=== PATIENT | female | born 1975 | race Caucasian/White ===

== ENCOUNTER 2018-07-30 11:55 | Outpatient (CLI) | payer MEDICARE, MEDICAID, SELFPAY ==
[2018-07-30 13:12] LABS: HCT 40.7 % (36.0-46.0); Mean Corp. HGB Concentration 34.4 g/dL (32.0-36.0); Mean Corpuscular Hemoglobin 33.7 pg (27.0-33.0); Mean Corpuscular Volume 98.1 fL (80-95); Mean Platelet Volume 10.8 fL (8.0-11.0); Platelet Count 184 x1000/uL (130-400); RBC 4.15 m/cumm (4.00-5.20); RBC Distribution Width 12.3 % (11.7-14.6); White Blood Cell Count 7.66 k/cumm (4.4-10.8)
[2018-07-30 13:35] LABS: VALPROIC ACID 88.5 ug/mL (50-100)
[2018-07-30 13:36] LABS: BUN 13 mg/dL (7-18); Calcium 8.4 mg/dL (8.5-10.1); Glucose 88 mg/dL (70-100)
[2018-07-30 13:37] LABS: ALT 11 U/L (12-78); AST 15 U/L (15-37); Albumin 2.9 g/dL (3.4-5.0); Alkaline Phosphatase 83 U/L (46-116); Anion Gap 9.7 mmol/L (3-11); Bilirubin, Total 0.2 mg/dL (0.2-1.0); CO2 25.3 mmol/L (21.0-32.0); CREATININE 0.49 mg/dL (0.55-1.02); Chloride 104 mmol/L (98-107); Sodium 139 mmol/L (136-145); TROPONIN-I 12.2 ug/mL (4.0-12.0); Total Protein 6.6 g/dL (6.4-8.2)
[2018-07-30 14:01] LABS: Vitamin D 25 Total 44.9 ng/ml (30-100)
== END 2018-07-30 12:15 ==
PROVIDERS: PCP Family Medicine; Visit Provider Family Medicine
DX: G40.309 Generalized idiopathic epilepsy and epileptic syndromes, not intractable, without status epilepticus (principal); G80.9 Cerebral palsy, unspecified; E55.9 Vitamin D deficiency, unspecified; Z51.81 Encounter for therapeutic drug level monitoring; Z79.899 Other long term (current) drug therapy
CPT/HCPCS: 36415; 80053; 82306; 85027; 80156; 80164

== ENCOUNTER 2019-04-01 10:35 | Outpatient (CLI) | payer MEDICARE, MEDICAID, SELFPAY ==
[2019-04-01 12:34] LABS: Abs Immature Grans 0.01 k/cumm (0.0-0.09); Absolute Basophil Count 0.04 k/cumm (0.0-0.2); Absolute Eosinophil Count 0.06 k/cumm (0.0-0.7); Absolute Lymphocyte Count 2.16 k/cumm (1.2-3.4); Absolute Monocyte Count 0.52 k/cumm (0.11-0.7); Absolute Neutrophil Count 3.27 k/cumm (1.2-6.7); Basophils % 0.7; HCT 37.9 % (36.0-46.0); HGB 12.5 g/dL (12.0-15.5); Immature Grans % 0.2 %; Lymphocytes % 35.6; Mean Corpuscular Hemoglobin 33.2 pg (27.0-33.0); Mean Corpuscular Volume 100.5 fL (80-95); Mean Platelet Volume 11.1 fL (8.0-11.0); Monocytes % 8.6; Neutrophils % 53.9; Platelet Count 150 x1000/uL (130-400); RBC 3.77 m/cumm (4.00-5.20); White Blood Cell Count 6.06 k/cumm (4.4-10.8)
[2019-04-01 12:48] LABS: VALPROIC ACID 97.5 ug/mL (50-100)
[2019-04-01 12:51] LABS: TROPONIN-I 11.6 ug/mL (4.0-12.0)
[2019-04-01 13:38] LABS: ALT 10 U/L (14-59); AST 17 U/L (15-37); Albumin 2.6 g/dL (3.4-5.0); Alkaline Phosphatase 82 U/L (46-116); BUN 20 mg/dL (7-18); Bilirubin, Total 0.1 mg/dL (0.2-1.0); CREATININE 0.58 mg/dL (0.55-1.02); Glucose 110 mg/dL (74-106); Potassium 4.2 mmol/L (3.5-5.1); Sodium 142 mmol/L (136-145); Total Protein 6.1 g/dL (6.4-8.2)
[2019-04-01 13:42] LABS: CO2 QNS mmol/L (21.0-32.0); Chloride QNS mmol/L (98-107)
[2019-04-01 13:44] LABS: Calcium 7.9 mg/dL (8.5-10.1)
== END 2019-04-01 10:55 ==
PROVIDERS: PCP Family Medicine; Visit Provider Family Medicine
DX: G40.909 Epilepsy, unspecified, not intractable, without status epilepticus (principal); Z51.81 Encounter for therapeutic drug level monitoring; Z79.899 Other long term (current) drug therapy
CPT/HCPCS: 36415; 80053; 80156; 80164; 85025

== ENCOUNTER 2020-08-08 03:04 | Outpatient (CLI) | payer MEDICARE, MEDICAID, SELFPAY ==
[2020-08-08 13:01] LABS: HCT 42.1 % (36.0-46.0); HGB 14.2 g/dL (11.2-15.7); MCH 33.3 pg (27.0-33.0); MCHC 33.7 % (32.0-36.0); MCV 98.8 fL (80-95); MPV 10.9 fL (8.0-11.0); Platelet Count 142 10^3/uL (130-400); RBC 4.26 10^6/uL (3.93-5.22); RDW 11.9 % (11.7-14.6); RDW-SD 43.3 fL
[2020-08-08 13:52] LABS: VALPROIC ACID 112.2 ug/mL (50-100)
[2020-08-08 13:54] LABS: ALT 12 U/L (14-59); AST 14 U/L (15-37); Alkaline Phosphatase 85 U/L (46-116); Anion Gap 10.1 mmol/L (3-11); BUN 13 mg/dL (7-18); Bilirubin, Total 0.2 mg/dL (0.2-1.0); CO2 25.9 mmol/L (21.0-32.0); CREATININE 0.5 mg/dL (0.55-1.02); Calcium 8.8 mg/dL (8.5-10.1); Chloride 107 mmol/L (98-107); Glucose 109 mg/dL (74-106); Potassium 4.2 mmol/L (3.5-5.1); Sodium 143 mmol/L (136-145); Total Protein 7.2 g/dL (6.4-8.2)
[2020-08-08 13:56] LABS: Folate > 20.0 ng/mL (8.6-20.0)
[2020-08-10 05:02] LABS: Vitamin D 25 Total 38.6 ng/mL (30-100)
== END 2020-08-08 03:05 | disposition home or self-care (01) ==
LOC: LBO 03:04
PROVIDERS: PCP Family Medicine; Visit Provider Family Medicine
DX: R56.9 Unspecified convulsions (principal); E55.9 Vitamin D deficiency, unspecified; G80.9 Cerebral palsy, unspecified; Z51.81 Encounter for therapeutic drug level monitoring; Z79.899 Other long term (current) drug therapy; D53.9 Nutritional anemia, unspecified
CPT/HCPCS: 36415; 80053; 82306; 85027; 80156; 80164; 82746

== ENCOUNTER 2022-02-11 19:08 | Inpatient (IN) | payer MEDICARE, MEDICAID, SELFPAY ==
[2022-02-11 19:14] VITALS: BP 119/68; PULSE 80; RESP 18; O2SAT 98
--- NOTE | 2022-02-11 19:15 | RT.EKG_ITS ---
APPROVED REPORT Exam: Resting ECG Reason for Exam: ams Patient Location: E HR:79 bpm ECG Measurements Heart Rate 79 AXIS WV 140 P 60 QRSd 74 QRS -57 QT 344 T 47 QTc 396 Conclusion Sinus rhythm...normal P axis, V-rate 60- 99 Ventricular premature complex...V complex w/ short R-R interval Left anterior fascicular block...axis(240,-40), init forces inf sinus rhythm, left axis, normal intevals, non ischemic
--- NOTE | 2022-02-11 19:55 | ED.GENADUL_ITS ---
Discharge Plan Disposition Patient Disposition: Admit to [facility] Condition: Stable Discharge Details Chief Complaint: AMS/LOC Clinical Impression: Altered mental status Primary Care Provider: Paula Lorenzo ED Provider: Ze Castro Home Meds and New Rx's Prescriptions: No Action carbamazepine 100 mg tablet,chewable See Rx Instructions PO TID Qty: 180 12RF Rx Instructions: 2 tabs in AM; 1 tab noon; 3 tabs in PM bisacodyl [Dulcolax (bisacodyl)] 10 mg suppository 10 mg MO DAILY Qty: 90 5RF divalproex 125 mg tablet,delayed release (DR/EC) See Rx Instructions PO BID Qty: 330 8RF Rx Instructions: 5tab in AM; 6 tab in PM PO twice a day; Medical Decision Making This is a 46-year-old female who is nonverbal, past medical history that includes cerebral palsy, seizure disorder, presenting for decreased responsiveness. HPI is quite difficult given her nonverbal status. Her typical entry level assistant manager was called away on a family emergency and her respite entry level assistant manager who knows her well states that she was far from her typical baseline. Would not take any p.o. intake including food or medications and was far less responsive than usual. She states this is very atypical. Patient presents with her mother, mother reports that she seems to be off from her baseline mental status as well. Given the difficult HPI, limited information, plan is to obtain routine screening laboratory values including a CT of her brain and a chest x- ray. We will provide IV fluids as well Laboratory values reveal mild nonspecific leukocytosis 11.17, platelet count of 105, electrolytes unremarkable creatinine 0.6 with a GFR of 110.65 calcium 7.3 magnesium 1.9 troponin less than the 50, urine was a cath specimen, large blood. Flu, RSV, COVID-negative. CT imaging of brain and chest x-ray unremarkable. I had a very candid conversation both with the mother and then subsequently with the current respite home care worker. They both feel as though she is very far from her baseline. Here in the ER she would not eat any applesauce and would not take her oral nighttime medications that she would typically take without any difficulty. Her home health cooler worker feels as though there is something wrong and is quite concerned about excepting care. Given the overall atypical presentation, difficult HPI, and concern of the staff, I will discussed the case with our hospitalist to try for potential observation admission Case discussed with Dr. Shane who came to personally evaluate the patient and is agreeable to admission. He plans to treat the hematuria and mild leukocytosis as potential UTI until cultures have been resulted. This documentation was generated using [employer] dictation system, please disregard any oddities of phrase or misspellings. Medical Records Medical records reviewed: Yes I reviewed the patient's medical records. Imaging Data Radiologic Study: Attestation: I personally reviewed and interpreted this imaging study as follows: Imaging: X-Ray Radiologist's impression: PROCEDURE INFORMATION: Exam: XR Chest Exam date and time: 02/11/2022 8:32 PM Age: 46 years old Clinical indication: Other: AMS TECHNIQUE: Imaging protocol: Radiologic exam of the chest. Views: 1 view. COMPARISON: CR CHEST 2 VIEWS PA,LAT 04/22/2017 4:16 PM FINDINGS: Lungs: Unremarkable. No consolidation. Pleural spaces: Unremarkable. No pleural effusion. No pneumothorax. Heart/Mediastinum: Unremarkable. No cardiomegaly. Bones/joints: Unremarkable. Moderate gastric distension IMPRESSION: No acute findings. Moderate gastric distention . Consider nasogastric intubation as indicated Radiologic Study #2: Attestation: I personally reviewed and interpreted this imaging study as follows: Imaging: CT Scan Radiologist's impression: PROCEDURE INFORMATION: Exam: CT Head Without Contrast Exam date and time: 02/11/2022 8:37 PM Age: 46 years old Clinical indication: Altered mental status/memory loss TECHNIQUE: Imaging protocol: Computed tomography of the head without contrast. COMPARISON: No relevant prior studies available. FINDINGS: Brain: Mild volume loss No hemorrhage. Unremarkable white matter. No mass effect. Cerebral ventricles: No ventriculomegaly. Paranasal sinuses: Minimal mucosal thickening. No fluid levels. Mastoid air cells: Visualized mastoid air cells are well aerated. Bones/joints: Unremarkable. No acute fracture. Soft tissues: Unremarkable. IMPRESSION: No acute intracranial abnormality. Lab Data Lab results reviewed: Yes I reviewed the patient's lab results. Labs: 02/11/22 20:22 Urine - Reflex from Ua Urine Culture - Pending Laboratory Tests Range/Units 02/11/22 02/11/22 02/11/22 20:05 20:05 20:05 WBC (4.4-10.8) 10^3/uL 11.17 H RBC (3.93-5.22) 10^6/uL 3.78 L Hgb (11.2-15.7) g/dL 12.8 Hct (36.0-46.0) % 37.7 MCV (80-95) fL 100 H MCH (27.0-33.0) pg 33.9 H MCHC (32.0-36.0) % 34.0 RDW (11.7-14.6) % 11.9 Plt Count (130-400) 10^3/uL 105 L MPV (8.0-11.0) fL 11.4 H Immature Gran % 0.5 Neutrophils % 67.4 Lymphocytes % 14.5 Monocytes % 17.4 Eosinophils % 0.0 Basophils % 0.2 Nucleated RBC % (0.0-0.3) % 0.0 Absolute Neutrophils (1.2-6.7) 10^3/uL 7.53 H Absolute Lymphocytes (1.2-3.4) 10^3/uL 1.62 Absolute Monocytes (0.1-0.8) 10^3/uL 1.94 H Absolute Eosinophils (0.0-0.7) 10^3/uL 0.00 Absolute Basophils (0.0-0.2) 10^3/uL 0.02 RBC Morphology Normal Sodium (136-145) mmol/L 140 Potassium (3.5-5.1) mmol/L 3.9 Chloride (98-107) mmol/L 107 Carbon Dioxide (21.0-32.0) mmol/L 23.9 Anion Gap (3-11) mmol/L 9.1 BUN (7-18) mg/dL 19 H Creatinine (0.55-1.02) mg/dL 0.6 Est GFR (CKD-EPI 2020) (mL/min/1.73m2) 110.65 Glucose (74-106) mg/dL 105 Calcium (8.5-10.1) mg/dL 7.3 L Magnesium (1.8-2.4) mg/dL 1.9 Total Bilirubin (0.2-1.0) mg/dL 0.1 L AST (15-37) U/L 19 ALT (14-59) U/L 6 L Alkaline Phosphatase (46-116) U/L 70 Troponin I (<or=60) ng/L < 50 Total Protein (6.4-8.2) g/dL 5.9 L Albumin (3.4-5.0) g/dL 2.4 L TSH (0.36-3.74) uIU/mL 1.06 Urine Color (Yellow) Urine Clarity (Clear) Urine pH (5-8) Ur Specific [place] (1.005-1.025) Urine Protein (Negative) mg/dL Urine Ketones (Negative) mg/dL Urine Blood (Negative) Urine Nitrite (Negative) Urine Bilirubin (Negative) Urine Urobilinogen (Up TO 0.2) EU/dL Ur Leukocyte Esterase (Negative) Urine RBC (0-2) HPF Urine WBC Ur Epithelial Cells Urine Crystals Urine Bacteria Urine Mucus Ur Culture Indicated? Urine Glucose (Negative) mg/dL COVID-19 Source SARS-CoV-2 (PCR) (Negative) Influenza Type A (PCR) (Negative) Influenza Type B (PCR) (Negative) RSV (PCR) (Negative) Range/Units 02/11/22 02/11/22 20:22 20:25 WBC (4.4-10.8) 10^3/uL RBC (3.93-5.22) 10^6/uL Hgb (11.2-15.7) g/dL Hct (36.0-46.0) % MCV (80-95) fL MCH (27.0-33.0) pg MCHC (32.0-36.0) % RDW (11.7-14.6) % Plt Count (130-400) 10^3/uL MPV (8.0-11.0) fL Immature Gran % Neutrophils % Lymphocytes % Monocytes % Eosinophils % Basophils % Nucleated RBC % (0.0-0.3) % Absolute Neutrophils (1.2-6.7) 10^3/uL Absolute Lymphocytes (1.2-3.4) 10^3/uL Absolute Monocytes (0.1-0.8) 10^3/uL Absolute Eosinophils (0.0-0.7) 10^3/uL Absolute Basophils (0.0-0.2) 10^3/uL RBC Morphology Sodium (136-145) mmol/L Potassium (3.5-5.1) mmol/L Chloride (98-107) mmol/L Carbon Dioxide (21.0-32.0) mmol/L Anion Gap (3-11) mmol/L BUN (7-18) mg/dL Creatinine (0.55-1.02) mg/dL Est GFR (CKD-EPI 2020) (mL/min/1.73m2) Glucose (74-106) mg/dL Calcium (8.5-10.1) mg/dL Magnesium (1.8-2.4) mg/dL Total Bilirubin (0.2-1.0) mg/dL AST (15-37) U/L ALT (14-59) U/L Alkaline Phosphatase (46-116) U/L Troponin I (<or=60) ng/L Total Protein (6.4-8.2) g/dL Albumin (3.4-5.0) g/dL TSH (0.36-3.74) uIU/mL Urine Color (Yellow) Yellow Urine Clarity (Clear) Cloudy Urine pH (5-8) 6.0 Ur Specific [place] (1.005-1.025) 1.025 Urine Protein (Negative) mg/dL 30 H Urine Ketones (Negative) mg/dL Negative Urine Blood (Negative) Large H Urine Nitrite (Negative) Negative Urine Bilirubin (Negative) Negative Urine Urobilinogen (Up TO 0.2) EU/dL 0.2 Ur Leukocyte Esterase (Negative) Trace H Urine RBC (0-2) HPF >50 H Urine WBC Not Applicable Ur Epithelial Cells Not Applicable Urine Crystals Not Applicable Urine Bacteria Not Applicable Urine Mucus Not Applicable Ur Culture Indicated? Yes Urine Glucose (Negative) mg/dL Negative COVID-19 Source Nasopharynx SARS-CoV-2 (PCR) (Negative) Negative Influenza Type A (PCR) (Negative) Negative Influenza Type B (PCR) (Negative) Negative RSV (PCR) (Negative) Negative ECG Data Attestation: I personally reviewed and interpreted this ECG (s) as follows: Interpretation: Sinus rhythm, ventricular rate of 79. No STEMI Sign Out No HPI General Mode of arrival: EMS . Date/Time Provider Initiated Documentation: 02/11/22 19:18 . Limitations to Documentation: other (Pt non verbal) . Information obtained by: family (mother) and EMS . HPI Narrative: This is a 46-year-old female with a past medical history of cerebral palsy, seizure disorder, who is nonverbal at baseline presenting via EMS for decreased mental status. Patient typically resides in a home health home however that worker had a family emergency and had to leave. Subsequently she received a new cooler worker today who has dealt with the patient in the past who felt that the patient had a decreased mental status. She typically is awake and alert and tolerates p.o. intake without difficulty. Today she was withdrawn, not interacting, and not taking any p.o. intake. No known recent illness or trauma. Patient is nonverbal, limited HPI Related Data Home Medications Medication Instructions Recorded Confirmed carbamazepine 100 mg chewable See Rx Instructions PO TID #180 03/27/21 02/11/22 tablet tabs bisacodyl 10 mg rectal suppository 10 mg MO DAILY #90 supp 08/01/21 02/11/22 (Dulcolax (bisacodyl)) divalproex 125 mg tablet,delayed See Rx Instructions PO BID #330 01/01/22 02/11/22 release tab-caps Previous Rx's Medication Instructions Recorded carbamazepine 100 mg chewable See Rx Instructions PO TID #180 03/27/21 tablet tabs bisacodyl 10 mg rectal suppository 10 mg MO DAILY #90 supp 08/01/21 (Dulcolax (bisacodyl)) divalproex 125 mg tablet,delayed See Rx Instructions PO BID #330 01/01/22 release tab-caps Allergies Allergy/AdvReac Type Severity Reaction Status Date / Time sulfamethoxazole AdvReac Intermediate NAUSEA, Verified 02/11/22 20:31 [From Bactrim] VOMITING trimethoprim [From Bactrim] AdvReac Intermediate NAUSEA, Verified 02/11/22 20:31 VOMITING General Stated Complaint: AMS/LOC TYE: 3 Review of Systems Unobtainable due to mental condition (non verbal) PFSH All Active Problems (Updated 02/11/22 @ 23:51 by EMILY Mckeon) Altered mental status (Acute) Chalazion of right eyelid (Acute) Eyelid abnormality (Acute) Seizure (Acute) 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 [place] [facility] [place] Onychomycosis (Chronic) Hearing loss (Chronic) Generalized convulsive epilepsy (Chronic) Cerebral palsy (Chronic) Acne (Chronic) Macrocytic anemia (Chronic) Family History Mother No problems noted. Father No problems noted. Grandfather No problems noted. Grandmother No problems noted. Social History Smoking/Tobacco Use Status: Never Smoking risk assessment performed?: Yes Alcohol Intake: never Drug use: Never Substance use type: does not use Do you feel safe in your relationship?: Yes Exam Const General: no acute distress and ill appearing chronically Orientation: alert and awake [facility] Head: normal to inspection, normocephalic and atraumatic Face and sinus: normal facial exam Mouth: moist mucous membranes abnormal (Slightly dry) Throat: posterior oropharynx normal Eyes General: appearance normal, both eyes and all related structures Conjunctivae: conjunctivae normal Neck Neck: normal visual inspection, full ROM, no meningeal signs, trachea midline and supple Resp Effort & Inspection: normal respiratory effort and able to speak in complete sentences Auscultation: clear to auscultation bilaterally Cardio Rate: regular rate Rhythm: regular rhythm GI Palpation: soft and nontender Skin General skin exam: no rashes or lesions noted Neuro General: patient alert, patient awake and moves all extremities Extrem Other: Baseline contractures. Otherwise unremarkable Psych Appearance: grossly normal Mental Status: mental status grossly normal Course Vital Signs Vital signs: Vital Signs Pulse 80 02/11/22 19:14 Respiratory Rate 18 02/11/22 19:14 Blood Pressure 119/68 02/11/22 19:14 Pulse Oximetry 98 02/11/22 19:14 Pulse 80 02/11/22 19:14 Respiratory Rate 18 02/11/22 19:14 Blood Pressure 119/68 02/11/22 19:14 Blood Pressure Position Supine 02/11/22 19:14 Pulse Oximetry 98 02/11/22 19:14 Oxygen Delivery Method Room Air 02/11/22 19:14 Oxygen Flow Rate 0 02/11/22 19:14
[2022-02-11 20:14] LABS: Abs Immature Grans 0.06 10^3/uL (0.0-0.06); Absolute Basophil Count 0.02 10^3/uL (0.0-0.2); Absolute Lymphocyte Count 1.62 10^3/uL (1.2-3.4); Absolute Monocyte Count 1.94 10^3/uL (0.1-0.8); Absolute Neutrophil Count 7.53 10^3/uL (1.2-6.7); Basophils % 0.2; HCT 37.7 % (36.0-46.0); HGB 12.8 g/dL (11.2-15.7); Immature Grans % 0.5; Lymphocytes % 14.5; MCH 33.9 pg (27.0-33.0); MCV 100 fL (80-95); MPV 11.4 fL (8.0-11.0); Monocytes % 17.4; Neutrophils % 67.4; Platelet Count 105 10^3/uL (130-400); RBC 3.78 10^6/uL (3.93-5.22); RDW 11.9 % (11.7-14.6); RDW-SD 43.9 fL; WBC 11.17 10^3/uL (4.4-10.8)
[2022-02-11 20:23] LABS: Diff Comment Agrees w/ Instrument; RBC Morphology Normal
[2022-02-11 20:28] LABS: ALT 6 U/L (14-59); AST 19 U/L (15-37); Albumin 2.4 g/dL (3.4-5.0); Alkaline Phosphatase 70 U/L (46-116); Anion Gap 9.1 mmol/L (3-11); BUN 19 mg/dL (7-18); Bilirubin, Total 0.1 mg/dL (0.2-1.0); CO2 23.9 mmol/L (21.0-32.0); CREATININE 0.6 mg/dL (0.55-1.02); Calcium 7.3 mg/dL (8.5-10.1); Chloride 107 mmol/L (98-107); Estimated GFR 110.65 (mL/min/1.73m2); Glucose 105 mg/dL (74-106); Potassium 3.9 mmol/L (3.5-5.1); Sodium 140 mmol/L (136-145); Total Protein 5.9 g/dL (6.4-8.2)
[2022-02-11] MEDS: Normal Saline 1,000 ML 1000 ML IV (20:31)
[2022-02-11 20:34] LABS: Bilirubin Negative (Negative); Blood Large (Negative); Glucose Negative (Negative); Ketones Negative (Negative); Leukocyte Esterase Trace (Negative); Nitrite Negative (Negative); Specific Gravity 1.025 (1.005-1.025); Urobilinogen 0.2 EU/dL (Up TO 0.2)
--- NOTE | 2022-02-11 20:37 | DI.CT_ITS ---
Exam(s) CT HEAD WO EXAM: CT HEAD WO CLINICAL HISTORY: ams. TECHNIQUE: Imaging Protocol: Axial computed tomography images with coronal and sagittal reformatted images were created and reviewed COMPARISON: No exams were available for comparison FINDINGS: Ventricles and Extra axial spaces: Normal in size and morphology for the patient's age. Hemorrhage: None. Cerebral parenchyma: No acute territorial infarct. Midline shift: None. Brainstem/Cerebellum: Normal. Calvarium: Normal. Visualized Paranasal sinuses/Mastoids: Mild mucosal thickening in the ethmoid air cells. The remaini ng visualized paranasal sinuses are clear as are the mastoid air cells. Soft Tissues: Unremarkable. IMPRESSION: No acute intracranial process. RADIATION DOSE DELIVERED: 726.79mGy.cm Total DLP DATA REPOSITORY: All CT scans at this facility are submitted to the National Radiology Data Registry (NRDR) Dose Index Registry (DIR) with the [employer] (ACR). RADIATION OPTIMIZATION: All CT scans at this facility use at least one of these dose optimization te chniques: automated exposure control; mA and/or kV adjustment per patient size (includes targeted exa ms where dose is matched to clinical indication); or iterative reconstruction.
[2022-02-11 20:38] LABS: Magnesium 1.9 mg/dL (1.8-2.4); TSH (W/Ref FT4) 1.06 uIU/mL (0.36-3.74); Troponin I < 50 ng/L (<or=60)
--- NOTE | 2022-02-11 20:41 | DI.RAD_ITS ---
Exam(s) XR CHEST 1V IN DI DEPT EXAM: XR CHEST 1V IN DI DEPT CLINICAL HISTORY: ams TECHNIQUE: 2D digital imaging was performed of the chest. One image was obtained. An AP view was ob tained. COMPARISON: CR CHEST 2 VIEWS PA,LAT from 04/22/2017 FINDINGS: MEDIASTINUM: Normal. HEART: Normal. PULMONARY VASCULATURE: Normal. LUNGS: Clear. PLEURAL SPACE: No pleural effusion or pneumothorax. BONE:Within normal limits for the patient's age. OTHER FINDINGS:Note is made of moderate gastric distention. IMPRESSION: No acute pulmonary findings. DATA REPOSITORY: RADIATION DOSE DELIVERED:
[2022-02-11 20:44] LABS: Clarity Cloudy (Clear)
[2022-02-11 20:45] LABS: C & S Indicated? Yes; RBC >50 HPF (0-2)
--- NOTE | 2022-02-11 20:49 | DI.VRAD_ITS ---
PROCEDURE INFORMATION: Exam: CT Head Without Contrast Exam date and time: 02/11/2022 8:37 PM Age: 46 years old Clinical indication: Altered mental status/memory loss TECHNIQUE: Imaging protocol: Computed tomography of the head without contrast. COMPARISON: No relevant prior studies available. FINDINGS: Brain: Mild volume loss No hemorrhage. Unremarkable white matter. No mass effect. Cerebral ventricles: No ventriculomegaly. Paranasal sinuses: Minimal mucosal thickening. No fluid levels. Mastoid air cells: Visualized mastoid air cells are well aerated. Bones/joints: Unremarkable. No acute fracture. Soft tissues: Unremarkable. IMPRESSION: No acute intracranial abnormality. Dictated and Authenticated by: Fabian Dutta MD. Ordering:JEFF Kunz MD
--- NOTE | 2022-02-11 20:49 | DI.VRAD_ITS ---
PROCEDURE INFORMATION: Exam: XR Chest Exam date and time: 02/11/2022 8:32 PM Age: 46 years old Clinical indication: Other: AMS TECHNIQUE: Imaging protocol: Radiologic exam of the chest. Views: 1 view. COMPARISON: CR CHEST 2 VIEWS PA,LAT 04/22/2017 4:16 PM FINDINGS: Lungs: Unremarkable. No consolidation. Pleural spaces: Unremarkable. No pleural effusion. No pneumothorax. Heart/Mediastinum: Unremarkable. No cardiomegaly. Bones/joints: Unremarkable. Moderate gastric distension IMPRESSION: No acute findings. Moderate gastric distention . Consider nasogastric intubation as indicated Dictated and Authenticated by: Fabian Dutta MD. Ordering:JEFF Kunz MD
[2022-02-11 21:08] LABS: COVID-19 PCR Negative (Negative); Influenza A PCR Negative (Negative); Influenza B PCR Negative (Negative); RSV PCR Negative (Negative)
[2022-02-11 21:10] LABS: Source Nasopharynx
[2022-02-11 22:51] VITALS: RESP 18
--- NOTE | 2022-02-11 23:47 | HPE_ITS ---
Date of service: 02/11/22 Time of Service: 23:48 Assessment and Plan Assessment and plan (1) Altered mental status: Status: Acute Assessment and plan: Altered mental status. I think UTI may be the issue, manifesting with hematuria. Will continue IVF, begin empiric antibiotics pending culture results. As to seizure meds, I am not aware of any parenteral replacement for Depakote but will convert Tegretol to IV @ 70% of usual daily dose in four divided doses until taking PO. History of Present Illness History of Present Illness Chief Complaint: decreased responsiveness Narrative: 46 female with cerebral palsy, seizure disorder, baseline status non-verbal, total care at home. Here tonight with one day of being less responsive, not taking good PO. In ER w/u of note for absence of fever, white count 11 and microscopic hematuria; labs other barnett unrevealing. Given IVF w/o change in status. I was asked to evaluate for admission. Information Systems Security Developer does not feel she could manage patient in current state. Patient unable to provider any history. 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 Patient followed at [facility] [place]. Onychomycosis (Chronic) Hearing loss (Chronic) Generalized convulsive epilepsy (Chronic) Cerebral palsy (Chronic) Acne (Chronic) Macrocytic anemia (Chronic) Family History Mother No problems noted. Father No problems noted. Grandfather No problems noted. Grandmother No problems noted. Social History Smoking/Tobacco Use Status: Never Smoking risk assessment performed?: Yes Alcohol Intake: never Drug use: Never Substance use type: does not use Do you feel safe in your relationship?: Yes Meds Allergies and Home Medications Allergies Allergy/AdvReac Type Severity Reaction Status Date / Time sulfamethoxazole AdvReac Intermediate NAUSEA, Verified 02/11/22 20:31 [From Bactrim] VOMITING trimethoprim [From Bactrim] AdvReac Intermediate NAUSEA, Verified 02/11/22 20:31 VOMITING Home Medications Medication Instructions Recorded Confirmed Type carbamazepine 100 mg chewable See Rx Instructions PO TID #180 03/27/21 02/11/22 Rx tablet tabs bisacodyl 10 mg rectal suppository 10 mg ND DAILY #90 supp 08/01/21 02/11/22 Rx (Dulcolax (bisacodyl)) divalproex 125 mg tablet,delayed See Rx Instructions PO BID #330 01/01/22 02/11/22 Rx release tab-caps Exam Narrative Exam Narrative: 119/68, 80, 36.6, 18, 98% RA. HEENT atraumatic; neck supple; lungs clear; heart RRR; abdomen soft and NT; extremities w.o edema, contrasctures all 4s; neuro non-verbal, eyes open, non-specific movements observed Results Labs Result diagrams: 02/11/22 20:05 02/11/22 20:05 Labs: Laboratory Results - last 24 hr 02/11/22 02/11/22 02/11/22 20:05 20:05 20:05 WBC 11.17 H RBC 3.78 L Hgb 12.8 Hct 37.7 MCV 100 H MCH 33.9 H MCHC 34.0 RDW 11.9 Plt Count 105 L MPV 11.4 H Immature Gran % 0.5 Neutrophils % 67.4 Lymphocytes % 14.5 Monocytes % 17.4 Eosinophils % 0.0 Basophils % 0.2 Nucleated RBC % 0.0 Absolute Neutrophils 7.53 H Absolute Lymphocytes 1.62 Absolute Monocytes 1.94 H Absolute Eosinophils 0.00 Absolute Basophils 0.02 RBC Morphology Normal Sodium 140 Potassium 3.9 Chloride 107 Carbon Dioxide 23.9 Anion Gap 9.1 BUN 19 H Creatinine 0.6 Est GFR (CKD-EPI 2020) 110.65 Glucose 105 Calcium 7.3 L Magnesium 1.9 Total Bilirubin 0.1 L AST 19 ALT 6 L Alkaline Phosphatase 70 Troponin I < 50 Total Protein 5.9 L Albumin 2.4 L TSH 1.06 Urine Color Urine Clarity Urine pH Ur Specific [place] Urine Protein Urine Ketones Urine Blood Urine Nitrite Urine Bilirubin Urine Urobilinogen Ur Leukocyte Esterase Urine RBC Urine WBC Ur Epithelial Cells Urine Crystals Urine Bacteria Urine Mucus Ur Culture Indicated? Urine Glucose COVID-19 Source SARS-CoV-2 (PCR) Influenza Type A (PCR) Influenza Type B (PCR) RSV (PCR) 02/11/22 02/11/22 20:22 20:25 WBC RBC Hgb Hct MCV MCH MCHC RDW Plt Count MPV Immature Gran % Neutrophils % Lymphocytes % Monocytes % Eosinophils % Basophils % Nucleated RBC % Absolute Neutrophils Absolute Lymphocytes Absolute Monocytes Absolute Eosinophils Absolute Basophils RBC Morphology Sodium Potassium Chloride Carbon Dioxide Anion Gap BUN Creatinine Est GFR (CKD-EPI 2020) Glucose Calcium Magnesium Total Bilirubin AST ALT Alkaline Phosphatase Troponin I Total Protein Albumin TSH Urine Color Yellow Urine Clarity Cloudy Urine pH 6.0 Ur Specific [place] 1.025 Urine Protein 30 H Urine Ketones Negative Urine Blood Large H Urine Nitrite Negative Urine Bilirubin Negative Urine Urobilinogen 0.2 Ur Leukocyte Esterase Trace H Urine RBC >50 H Urine WBC Not Applicable Ur Epithelial Cells Not Applicable Urine Crystals Not Applicable Urine Bacteria Not Applicable Urine Mucus Not Applicable Ur Culture Indicated? Yes Urine Glucose Negative COVID-19 Source Nasopharynx SARS-CoV-2 (PCR) Negative Influenza Type A (PCR) Negative Influenza Type B (PCR) Negative RSV (PCR) Negative Last Vital Signs Pulse 80 02/11/22 19:14 Resp 18 02/11/22 22:51 BP 119/68 02/11/22 19:14 Pulse Ox 98 02/11/22 19:14
[2022-02-12] VITALS (8 sets, daily range): BP systolic 103–134; BP diastolic 59–79; PULSE 67–86; RESP 16–20; TEMP 36.8–38.1; O2SAT 95–100
--- NOTE | 2022-02-12 01:01 | NUR.NOTE ---
Nursing Note: Pt will be admitted for AMS r/t UTI by Dr. Shane. She normally takes both divalproex and carbamazepine orally for seizure disorder, however is currently NPO r/t mentation. At request of Dr. Shane, consulted [facility] [place] remote pharmacy for suitable IV substitution for her antiseizure medication regimen. Remote pharmacist recommends checking carbamazepine and valproic acid levels, then starting pt on either Keppra 500mg IV q12h OR Depacon 1Gm per day divided in either four or two doses. Pharmacist expressed preference toward Depacon over Keppra. Relayed all info to Dr. Shane.
[2022-02-12] MEDS: Lactated Ringers 1,000 ML 75 ML IV (01:45)
[2022-02-12] MEDS: CIPROFLOXACIN 400 MG/200 ML BAG 200 MG IVPB (02:11)
[2022-02-12] MEDS: ACETAMINOPHEN 1,000 MG/100 ML BTL 400 MG IVPB (02:32)
[2022-02-12] MEDS: Normal Saline Flush 10 ML SYR IVP (02:37)
[2022-02-12] MEDS: levETIRAcetam 500 MG in Normal Saline 100 ML 400 MG IVPB (03:40)
--- NOTE | 2022-02-12 09:47 | INITIAL_ITS ---
- If Service Date Differs Date of service: 02/12/22 Time of Service: 09:47 Care Management Initial Assess REASON FOR HOSPITALIZATION:: AMS, UTI PAST MEDICAL HISTORY/PAST SURGICAL HISTORY:: Cerebral Palsy, cortical blindness, bilateral hearing loss, seizure disorder. PREVIOUS FUNCTIONAL STATUS/SOCIAL/FAMILY SUPPORTS:: Allie resides at a longterm in [facility]. Her primary guardian/caregiver is out of town so Allie was in respite care. manager environmental health and safety number- [phone]. private DD home with 24 hour caregivers. Zofia Coulter is primary provider. Has resided there for the past 15 years. Her parents, Cassie and Gary Valles are her co-guardians. Patient also receives services (RN/AUTOMATIC SILK SCREEN PRINTER) from . CURRENT FUNCTIONAL STATUS:: Patient is unable to engage in conversation--information for initial assessment is being obtained from chart review. No caregiver or family present at the bedside at time of visit. ADVANCE DIRECTIVES:: Guardian listed as Lisette Delgado, updated paperwork needed. Has patient been provided with info about the portal/API?: No Did the patient sign up for the portal?: No CODE STATUS:: Full Code CURRENT HOME/COMMUNITY SERVICES/EQUIPMENT:: Patient is on IDDS waiver through [employer] and receives services under that program which includes RN and AUTOMATIC SILK SCREEN PRINTER hours from [facility]. Has hospital bed, motorized wheelchair and tub seat. Travels to appointments via w/c van. PRIMARY CARE PHYSICIAN:: Paula Lorenzo DO POTENTIAL DISCHARGE NEEDS:: Coordinated return to respite or home provider. PATIENT/FAMILY EDUCATION NEEDS:: Review discharge instructions, discuss Ask Me Three. ANTICIPATED BARRIERS TO DISCHARGE:: None identified at this time. TRANSPORTATION:: Via private W/C Van or EMS. PLAN:: Allie will return to her primary caregivers home or back to respite upon discharge, when medically ready. CM continues to follow.
[2022-02-12] MEDS: Bisacodyl 10 MG SUPP PR (11:37)
--- NOTE | 2022-02-12 14:52 | W.PM.PROGNOT ---
Date of Service Date of service: 02/12/22 Time of Service: 14:52 Subjective Subjective Patient reports: no new complaints, tolerating liquids well and afebrile; denies tolerating a regular diet, diarrhea, vomiting or shortness of breath Interval history since last seen: Awake and alert, looking around. Mother is here and states she looks mostly back to her baseline, but patient is not willing to take oral food. She lost her IV and nursing was unable to replace. Her mother stayed and fed her. I changed her meds to oral and Mom was able to give it to her. She has had no seizures. Tmax since ED 37.4; stable labs. Blood and urine Cx pending. Vital signs are stable, no tachycardia- HR 68; normotensive 110s/60s - RA SPO2 98%. Nursing has no concerns. Enoxaparin by weight for DVT Prof. Objective Last Vital Signs Temp 37.3 C 02/12/22 11:59 Pulse 81 02/12/22 11:59 Resp 16 02/12/22 11:59 BP 134/62 02/12/22 11:59 Pulse Ox 100 02/12/22 11:59 Laboratory Results - last 24 hr 02/11/22 02/11/22 02/11/22 20:05 20:05 20:05 WBC 11.17 H RBC 3.78 L Hgb 12.8 Hct 37.7 MCV 100 H MCH 33.9 H MCHC 34.0 RDW 11.9 Plt Count 105 L MPV 11.4 H Immature Gran % 0.5 Neutrophils % 67.4 Lymphocytes % 14.5 Monocytes % 17.4 Eosinophils % 0.0 Basophils % 0.2 Nucleated RBC % 0.0 Absolute Neutrophils 7.53 H Absolute Lymphocytes 1.62 Absolute Monocytes 1.94 H Absolute Eosinophils 0.00 Absolute Basophils 0.02 RBC Morphology Normal Sodium 140 Potassium 3.9 Chloride 107 Carbon Dioxide 23.9 Anion Gap 9.1 BUN 19 H Creatinine 0.6 Est GFR (CKD-EPI 2020) 110.65 Glucose 105 Calcium 7.3 L Magnesium 1.9 Total Bilirubin 0.1 L AST 19 ALT 6 L Alkaline Phosphatase 70 Troponin I < 50 Total Protein 5.9 L Albumin 2.4 L TSH 1.06 Urine Color Urine Clarity Urine pH Ur Specific [place] Urine Protein Urine Ketones Urine Blood Urine Nitrite Urine Bilirubin Urine Urobilinogen Ur Leukocyte Esterase Urine RBC Urine WBC Ur Epithelial Cells Urine Crystals Urine Bacteria Urine Mucus Ur Culture Indicated? Urine Glucose COVID-19 Source SARS-CoV-2 (PCR) Influenza Type A (PCR) Influenza Type B (PCR) RSV (PCR) 02/11/22 02/11/22 20:22 20:25 WBC RBC Hgb Hct MCV MCH MCHC RDW Plt Count MPV Immature Gran % Neutrophils % Lymphocytes % Monocytes % Eosinophils % Basophils % Nucleated RBC % Absolute Neutrophils Absolute Lymphocytes Absolute Monocytes Absolute Eosinophils Absolute Basophils RBC Morphology Sodium Potassium Chloride Carbon Dioxide Anion Gap BUN Creatinine Est GFR (CKD-EPI 2020) Glucose Calcium Magnesium Total Bilirubin AST ALT Alkaline Phosphatase Troponin I Total Protein Albumin TSH Urine Color Yellow Urine Clarity Cloudy Urine pH 6.0 Ur Specific [place] 1.025 Urine Protein 30 H Urine Ketones Negative Urine Blood Large H Urine Nitrite Negative Urine Bilirubin Negative Urine Urobilinogen 0.2 Ur Leukocyte Esterase Trace H Urine RBC >50 H Urine WBC Not Applicable Ur Epithelial Cells Not Applicable Urine Crystals Not Applicable Urine Bacteria Not Applicable Urine Mucus Not Applicable Ur Culture Indicated? Yes Urine Glucose Negative COVID-19 Source Nasopharynx SARS-CoV-2 (PCR) Negative Influenza Type A (PCR) Negative Influenza Type B (PCR) Negative RSV (PCR) Negative
[2022-02-12] MEDS: Divalproex 125 MG TABEC 625 MG PO (15:52)
[2022-02-12] MEDS: Enoxaparin 30 MG/0.3 ML SYR SC (15:54)
--- NOTE | 2022-02-12 16:00 | CHAPLAIN ---
Maureen was resting in bed, trying to sleep but couldn't get comfortable, according to her mom. Maureen has CP and lives [facility] a [facility] in [place], [place]. Her mom with with her today when I visited. She explained that Maureen is blind, but sometimes listens to TV. Her usual caregiver at the Retirement had to leave because of a family emergency and others were not able to get to Maureen to eat or take her medicine. Her mom was able to get her to eat a small amount this morning morning. Staff was unable to get an IV in, according to Maureen's mom, but as long as she continues to eat and drink some, it won't be needed, she said. I introduced myself and explained my role. I will continue to visit.
[2022-02-12] MEDS: carBAMazepine 100 MG CHEW 200 MG PO (16:27)
--- NOTE | 2022-02-12 16:44 | PHA.REVIEW2 ---
Pharmacy Admission Review - Admission Clinical Review (Last Reviewed 02/11/22 @ 23:51 by Rayray Shane MD) Altered mental status (Acute) sulfamethoxazole [From Bactrim] Adverse Reaction (Intermediate, Verified 02/11/22 20:31) NAUSEA, VOMITING trimethoprim [From Bactrim] Adverse Reaction (Intermediate, Verified 02/11/22 20:31) NAUSEA, VOMITING Resuscitation Status Full Code Height 5 ft Weight 32.3 kg - Renal Dosing Renal Dosing: BUN 19 mg/dL (7-18) H 02/11/22 20:05 Creatinine 0.6 mg/dL (0.55-1.02) 02/11/22 20:05 Medications needing adjustments: Reviewed (Crcl ~57.8 mL/min current meds okay) - Anticoagulation Anticoagulation: Hgb 12.8 g/dL (11.2-15.7) 02/11/22 20:05 Hct 37.7 % (36.0-46.0) 02/11/22 20:05 Plt Count 105 10^3/uL (130-400) L 02/11/22 20:05 Creatinine 0.6 mg/dL (0.55-1.02) 02/11/22 20:05 DVT Prophylaxis: Intervened (I asked the provider about VTE prophylaxis as there was nothing ordered, nor was anything mentioned in the H&P regarding this) Therapeutic Anticoagulation: N/A - Opiate Usage Evaluate Pain Scale/Pains Meds: N/A - Relevant Labs Sodium 140 mmol/L (136-145) 02/11/22 20:05 Potassium 3.9 mmol/L (3.5-5.1) 02/11/22 20:05 Chloride 107 mmol/L (98-107) 02/11/22 20:05 Magnesium 1.9 mg/dL (1.8-2.4) 02/11/22 20:05 Electrolytes, C-Reactive P, ESR: Reviewed - DM Control DM Control: Glucose 105 mg/dL (74-106) 02/11/22 20:05 DM Control: Reviewed Insulin Dosing, Diabetic Medication: n/a - Cardiac Review Cardiac Review: Troponin I < 50 ng/L (<or=60) 02/11/22 20:05 BP, HR, EF%: Reviewed - Qtc Review QTc: Reviewed (QTc 396 on admission) - IV to PO Switch IV Medications: Intervened (I asked provider about changing acetaminophen from IV to PO) - Home Meds Home Med List reviewed: Reviewed - Current meds Current Medication Order Review: Reviewed - Comments Comments/Follow Ups: Watch VS, labs and for med changes (possible renal dose adjustments).
[2022-02-12] MEDS: Ciprofloxacin 250 MG/5 ML 100ML BTL PO (19:43)
[2022-02-12] MEDS: carBAMazepine 100 MG CHEW 300 MG PO (19:43)
[2022-02-12] MEDS: Divalproex 125 MG TABEC 750 MG PO (19:43)
[2022-02-12] MEDS: Acetaminophen 650 MG SUPP 325 MG PR (23:56)
[2022-02-13 07:09] LABS: Abs Immature Grans 0.04 10^3/uL (0.0-0.06); Absolute Basophil Count 0.06 10^3/uL (0.0-0.2); Absolute Eosinophil Count 0.07 10^3/uL (0.0-0.7); Absolute Lymphocyte Count 3.41 10^3/uL (1.2-3.4); Absolute Monocyte Count 1.35 10^3/uL (0.1-0.8); Absolute Neutrophil Count 3.37 10^3/uL (1.2-6.7); Basophils % 0.7; Eosinophils % 0.8; Immature Grans % 0.5; Lymphocytes % 41.1; MCH 34.5 pg (27.0-33.0); MCHC 34.3 % (32.0-36.0); MCV 101 fL (80-95); MPV 11.4 fL (8.0-11.0); Monocytes % 16.3; Neutrophils % 40.6; Platelet Count 108 10^3/uL (130-400); RBC 3.48 10^6/uL (3.93-5.22); RDW 11.9 % (11.7-14.6); RDW-SD 44.7 fL
[2022-02-13 07:19] LABS: Anion Gap 7.2 mmol/L (3-11); BUN 14 mg/dL (7-18); CO2 26.8 mmol/L (21.0-32.0); CREATININE 0.6 mg/dL (0.55-1.02); Calcium 8.2 mg/dL (8.5-10.1); Chloride 111 mmol/L (98-107); Estimated GFR 110.65 (mL/min/1.73m2); Glucose 91 mg/dL (74-106); Potassium 3.7 mmol/L (3.5-5.1); Sodium 145 mmol/L (136-145)
[2022-02-13 07:35] VITALS: BP 98/63; PULSE 69; RESP 16; TEMP 36.7; O2SAT 97
[2022-02-13] MEDS: Enoxaparin 30 MG/0.3 ML SYR SC (08:57)
[2022-02-13] MEDS: Divalproex 125 MG TABEC 625 MG PO (08:59)
[2022-02-13] MEDS: carBAMazepine 100 MG CHEW 200 MG PO (09:00)
[2022-02-13] MEDS: Ciprofloxacin 250 MG/5 ML 100ML BTL PO ×2 (09:01→20:50)
[2022-02-13] MEDS: Bisacodyl 10 MG SUPP PR (09:01)
--- NOTE | 2022-02-13 10:05 | PGE_ITS ---
Date of Service Date of service: 02/13/22 Time of Service: 10:05 Assessment and Plan Assessment and plan (1) Altered mental status: Status: Acute Assessment and plan: Altered mental status Emperic antibiotics pending culture results. 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 She looks better subjectively than she did yesterday. She is more awake and alert and mother reports more like herself. Exam Const General: no acute distress and ill appearing chronically Orientation: alert and awake [facility] Head: normal to inspection, normocephalic and atraumatic Face and sinus: normal facial exam Mouth: moist mucous membranes abnormal (Slightly dry) Throat: posterior oropharynx normal Eyes General: appearance normal, both eyes and all related structures Conjunctivae: conjunctivae normal Neck Neck: normal visual inspection, full ROM, no meningeal signs, trachea midline and supple Resp Effort & Inspection: normal respiratory effort and able to speak in complete sentences Auscultation: clear to auscultation bilaterally Cardio Rate: regular rate Rhythm: regular rhythm GI Palpation: soft and nontender Skin General skin exam: no rashes or lesions noted Neuro General: patient alert, patient awake and moves all extremities Extrem Other: Baseline contractures. Otherwise unremarkable Psych Appearance: grossly normal Mental Status: mental status grossly normal Objective Last Vital Signs Temp 36.7 C 02/13/22 07:35 Pulse 69 02/13/22 07:35 Resp 16 02/13/22 07:35 BP 98/63 L 02/13/22 07:35 Pulse Ox 97 02/13/22 07:35 Laboratory Results - last 24 hr 02/13/22 02/13/22 06:33 06:33 WBC 8.30 RBC 3.48 L Hgb 12.0 Hct 35.0 L MCV 101 H MCH 34.5 H MCHC 34.3 RDW 11.9 Plt Count 108 L MPV 11.4 H Immature Gran % 0.5 Neutrophils % 40.6 Lymphocytes % 41.1 Monocytes % 16.3 Eosinophils % 0.8 Basophils % 0.7 Nucleated RBC % 0.0 Absolute Neutrophils 3.37 Absolute Lymphocytes 3.41 H Absolute Monocytes 1.35 H Absolute Eosinophils 0.07 Absolute Basophils 0.06 Sodium 145 Potassium 3.7 Chloride 111 H Carbon Dioxide 26.8 Anion Gap 7.2 BUN 14 Creatinine 0.6 Est GFR (CKD-EPI 2020) 110.65 Glucose 91 Calcium 8.2 L Magnesium 2.0
[2022-02-13] MEDS: carBAMazepine 100 MG CHEW PO (11:24)
--- NOTE | 2022-02-13 14:50 | PDOC.CMPRO ---
- If Service Date Differs Date of service: 02/13/22 Time of Service: 14:51 Care Management Progress Note S/O: Allie continues to be closely monitored and treated, her mother or caregivers have been consistently at her bedside, and is eating better with her mother feeding her. No change to overall plan. CM continues to follow. A: 46 year old female admitted 02/11/22 for AMS, UTI P: Allie will return to her primary caregivers home or back to respite upon discharge, with a resumption of prior supports and PCP follow up when medically ready. CM continues to follow.
[2022-02-13 15:08] VITALS: BP 106/58; PULSE 78; RESP 16; TEMP 36.8; O2SAT 97
[2022-02-13] MEDS: Divalproex 125 MG TABEC 750 MG PO (20:50)
[2022-02-13] MEDS: carBAMazepine 100 MG CHEW 300 MG PO (20:50)
[2022-02-13 23:27] VITALS: PULSE 72; RESP 18; TEMP 37.4; O2SAT 97
[2022-02-14 07:35] VITALS: BP 102/67; PULSE 70; RESP 16; TEMP 37; O2SAT 95
--- NOTE | 2022-02-14 09:03 | PDOC.CMPRO ---
- If Service Date Differs Date of service: 02/14/22 Time of Service: 09:03 Care Management Progress Note S/O: Allie continues to be closely monitored and treated, her mother or caregivers have been consistently at her bedside, and is eating better with her mother feeding her. No change to overall plan. CM continues to follow. A: 46 year old female admitted 02/11/22 for AMS, UTI P: Allie will return to her primary caregivers home or back to respite upon discharge, with a resumption of prior supports and PCP follow up when medically ready. CM continues to follow.
[2022-02-14] MEDS: carBAMazepine 100 MG CHEW 200 MG PO (09:09)
[2022-02-14] MEDS: Bisacodyl 10 MG SUPP PR (09:09)
[2022-02-14] MEDS: Enoxaparin 30 MG/0.3 ML SYR SC (09:10)
[2022-02-14] MEDS: Divalproex 125 MG TABEC 625 MG PO (09:10)
[2022-02-14] MEDS: Ciprofloxacin 250 MG/5 ML 100ML BTL PO (09:21)
--- NOTE | 2022-02-14 11:18 | CMDISCH_ITS ---
- If Service Date Differs Date of service: 02/14/22 Time of Service: 11:18 LACE Index Scoring Tool - Questions: Length of Stay (in days): 3 Acuity (Admit via E.D.?): Yes Comorbidities: Connective Tissue Disease E.D. Visits: 1 - Answers: Total Score: 10 Risk of Readmission: High Risk Care Management Discharge Reason for Hospitalization: AMS, UTI Discharge Plan: Allie will return to her primary caregivers home with a resumption of prior supports and PCP follow up when medically ready. She will transport via private vehicle with her caregiver. Patient/Family Education Needs: Review discharge instructions, discuss Ask Me T hree.
[2022-02-14] MEDS: carBAMazepine 100 MG CHEW PO (12:30)
[2022-02-14 14:26] VITALS: BP 93/56; PULSE 75; RESP 16; TEMP 37.1; O2SAT 98
--- NOTE | 2022-02-14 15:30 | W.PM.DS.N ---
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 She presented to the [facility] ED with one day of being less responsive, and decreased oral intake. In ED afebrile, white count 11 and microscopic hematuria; labs otherwise were unrevealing. Given IVF with no change in status. She was placed on the medical floor on observation status and started on Cipro for UTI.? She stayed overnight and was taking oral nutrition and oral medications.? Mom reported she was back to baseline.? She had no fever, normal vital signs. She is taking all oral medications and in discussion with her mother it is more of a benefit for her to go home with her 24 h caregivers there to care for her in an environment that is familiar to her.? She should follow up with PCP in 1-2 weeks, perhaps she could have a home visit.? She was discharged to home via own wheel chair van.? Caregiver and mother advised to give her Cipro 500 mg twice a day for 10 days.? Return if fever, lethargy, other concerns.? Discussed wt Dr Blake Home Meds and New Rx's Prescriptions: New ciprofloxacin HCl [Cipro] 500 mg tablet 500 mg PO BID Qty: 20 0RF Continued carbamazepine 100 mg tablet,chewable See Rx Instructions PO TID Qty: 180 12RF Rx Instructions: 2 tabs in AM; 1 tab noon; 3 tabs in PM bisacodyl [Dulcolax (bisacodyl)] 10 mg suppository 10 mg ND DAILY Qty: 90 5RF divalproex 125 mg tablet,delayed release (/EC) See Rx Instructions PO BID Qty: 330 8RF Rx Instructions: 5tab in AM; 6 tab in PM PO twice a day; Discharge Instructions Instructions: Ciprofloxacin (By mouth), Altered Mental Status (GEN) Additional Instructions: Take Cipro twice a day for 10 days. Stand Alone Forms: Nursing Discharge Form Referrals: Paula Lorenzo MD, [place] [Primary Care Provider] - 02/26/22 8:00 am Activity:: Activity as Tolerated Equipment/Supplies:: No Equipment Needed Diet:: As Tolerated Discharge Orders Discharge Orders: Discharge Order (Routine); Ordered 02/14/22 Ordered By: Tracy Canela Discharge Data Discharge Date/Time-TO BE ENTERED AT DEPARTURE: 02/14/22 17:54 DS: Summary Time Spent with Patient providing and/or coordinating discharge services: Greater than 30 minutes Status at Discharge Functional status at discharge: bed bound Overall status at discharge: patient is back to baseline Mental Status: mental status grossly normal and other Speech and Movement: other Mood: other Affect: indifferent Exam Const General: no acute distress and ill appearing chronically Orientation: alert and awake [facility] Head: normal to inspection, normocephalic and atraumatic Face and sinus: normal facial exam Mouth: moist mucous membranes abnormal (Slightly dry) Throat: posterior oropharynx normal Eyes General: appearance normal, both eyes and all related structures Conjunctivae: conjunctivae normal Neck Neck: normal visual inspection, full ROM, no meningeal signs, trachea midline and supple Resp Effort & Inspection: normal respiratory effort and able to speak in complete sentences Auscultation: clear to auscultation bilaterally Cardio Rate: regular rate Rhythm: regular rhythm GI Palpation: soft and nontender Skin General skin exam: no rashes or lesions noted Neuro General: patient alert, patient awake and moves all extremities Extrem Other: Baseline contractures. Otherwise unremarkable Psych Appearance: grossly normal Mental Status: mental status grossly normal and other Speech and Movement: other Mood: other Affect: indifferent DS: Data Vitals/I&O Vitals and I&O: Vital Signs Temperature 37.1 C 02/14/22 14:26 Temperature Source Tympanic 02/14/22 14:26 Pulse 75 02/14/22 14:26 Pulse Rhythm Regular 02/14/22 09:00 Respiratory Rate 16 02/14/22 14:26 Respiratory Effort 02/14/22 09:00 Respiratory Depth Normal 12/08/22 09:00 Respiratory Pattern Normal 02/14/22 09:00 Blood Pressure 93/56 L 02/14/22 14:26 Blood Pressure Position Supine 02/11/22 19:14 Pulse Oximetry 98 02/14/22 14:26 Oxygen Delivery Method Room Air 02/14/22 14:26 Oxygen Flow Rate 0 02/14/22 14:26 Pain Level 0 02/13/22 15:08 Intake & Output 02/13/22 02/14/22 02/14/22 23:59 11:59 23:59 Intake Total 60 / 60 Balance 60 / 60 Intake: Oral 60 / 60 Other: Urine Color Yellow Yellow Urine Odor Normal Stool Size Moderate Moderate Stool Characteristics Soft Soft Voiding Methods Diaper Diaper Incontinent Incontinent Data Completed and Pending Labs on day of discharge: Labs from last 24 hours 02/14/22 02/14/22 05:35 05:35 WBC Pending RBC Pending Hgb Pending Hct Pending MCV Pending MCH Pending MCHC Pending RDW Pending Plt Count Pending MPV Pending Immature Gran % Pending Neutrophils % Pending Lymphocytes % Pending Monocytes % Pending Eosinophils % Pending Basophils % Pending Absolute Neutrophils Pending Absolute Lymphocytes Pending Absolute Monocytes Pending Absolute Eosinophils Pending Absolute Basophils Pending Sodium Pending Potassium Pending Chloride Pending Carbon Dioxide Pending Anion Gap Pending BUN Pending Creatinine Pending Est GFR (CKD-EPI 2020) Pending Glucose Pending Calcium Pending Magnesium Pending Preliminary micro results at discharge 02/12/22 02:05 Blood Culture - Preliminary Blood NO GROWTH 48 HOURS 02/12/22 02:00 Blood Culture - Preliminary Blood NO GROWTH 48 HOURS PFSH All Active Problems (Updated 02/13/22 @ 15:13 by Tracy Canela NP) DVT prophylaxis (Acute) Discharge planning issues (Acute) Altered mental status (Acute) Chalazion of right eyelid (Acute) Eyelid abnormality (Acute) Seizure (Acute) 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 Patient followed at [facility]. Onychomycosis (Chronic) Hearing loss (Chronic) Generalized convulsive epilepsy (Chronic) Cerebral palsy (Chronic) Acne (Chronic) Macrocytic anemia (Chronic) Family History Mother No problems noted. Father No problems noted. Grandfather No problems noted. Grandmother No problems noted. Social History Smoking/Tobacco Use Status: Never Smoking risk assessment performed?: Yes Alcohol Intake: never Drug use: Never Substance use type: does not use Do you feel safe in your relationship?: Yes
== END 2022-02-14 17:54 | disposition home or self-care (01) | DRG 690 ==
LOC: ER 02-12 00:25 → MS 02-12 01:19
PROVIDERS: Nurse Practitioner Family; Admitting Provider General Practice; Emergency Provider Physician Assistant; PCP Family Medicine; Visit Provider General Practice
DX: N39.0 Urinary tract infection, site not specified (principal); R47.01 Aphasia; R31.29 Other microscopic hematuria; G80.9 Cerebral palsy, unspecified; E55.9 Vitamin D deficiency, unspecified; H53.9 Unspecified visual disturbance; L21.0 Seborrhea capitis; Q07.9 Congenital malformation of nervous system, unspecified; G40.409 Other generalized epilepsy and epileptic syndromes, not intractable, without status epilepticus; D53.9 Nutritional anemia, unspecified; Z79.899 Other long term (current) drug therapy
CPT/HCPCS: 36410; 36415; 80048; 80053; 87040; 87077; 87637; 90686; 93005; 96360; 96361; 99285; 70450; 71045; 81003; 81015; 83735; 84443; 84484; 85025; 87086; 87186; 93010; 99222; 99225; 99239; J0131; J0744; J1650; J1953; J3490

== ENCOUNTER 2022-04-22 02:03 | Outpatient (CLI) | payer MEDICARE, MEDICAID, SELFPAY ==
--- NOTE | 2022-04-24 11:09 | PDOC.EEG ---
Neurology EEG EEG: [facility] Department of Neurology LONG-TERM AMBULATORY EEG REPORT Date of Recordin04/22/22 at 13:29:13 to 04/23/22 at 15:26:32 Interpreting Physician: Dr. Kimmie Little PCP/Referring Provider: Dr. Paula Lorenzo Reason for study: Allie Valles is a 46 year-old woman with known epilepsy, global developmental delay, non-verbal, and who is wheelchair bound. There is concern for increased seizure activity. Current Medications: Home Medications Medication Instructions Recorded Confirmed Type bisacodyl 10 mg rectal suppository 10 mg MN DAILY #90 supp 08/01/21 04/15/22 Rx (Dulcolax (bisacodyl)) divalproex 125 mg tablet,delayed See Rx Instructions PO BID #330 01/01/22 04/15/22 Rx release tab-caps carbamazepine 100 mg chewable See Rx Instructions PO TID #180 02/28/22 04/15/22 Rx tablet tabs nystatin 100,000 unit/gram topical 1 applic topical BID #30 grams 03/05/22 04/15/22 Rx cream METHODS: An 18-channel digitized electroencephalogram was recorded in the ambulatory setting with video. The 10/20 international system of electrode placement was used and bipolar and referential electrode montages were recorded. In addition to EEG the patient was monitored for EKG and by video. Activation procedures of photic stimulation and hyperventilation were performed if applicable. The duration of the recording was ~22 hours (-3 hours due to technical issues with the equipment). DESCRIPTION OF EEG: Waking background activity: The waking background activity is very disorganized with no typical markers. There is no PDR though an AP voltage gradient is seen. There is diffuse, non-rhythmic generalized delta and theta slowing throughout. Drowsy and sleeping background activity: No obvious sleep architecture seen. Sleep identified simply by lack of muscle/motion artifact, otherwise background activity is largely unchanged compared to wakefulness. Interictal abnormalities: There were frequent, high-amplitude, generalized spike-waves. Rarely, these occurred in rhythmic bursts lasting up to 4 seconds in duration. Paradoxically, they were seen less frequently during sleep but still present. Ictal findings: No events were captured. Activating Procedures: Photic stimulation was performed which produced no posterior driving response. Hyperventilation was not performed. EKG: EKG revealed normal sinus rhythm when readable but was largely disconnected for most of the recording. INTERPRETATION: This long-term EEG is abnormal due to: #1. Lack of normal wakefulness/sleep architecture with a disorganized, generalized slowing of the background activity. #2. Frequent generalized spike-waves, particularly during sleep. PRIOR EEG: -per [facility] records she had an EEG as an which showed hypsarrhythmia CLINICAL CORRELATION: The background slowing is suggestive of a severe diffuse cerebral encephalopathy consistent with patient's known global developmental delay. This recording also represents the interictal expression of a primary generalized epilepsy and indicates the patient is at increased risk for seizures. It is difficult to know if either of these findings are any more or less without comparison studies. No events were reported. Kimmie Little MD
== END 2022-04-24 23:59 | disposition home or self-care (01) ==
LOC: RT 02:03
PROVIDERS: PCP Family Medicine; Visit Provider Family Medicine
DX: R68.89 Other general symptoms and signs (principal); Q07.9 Congenital malformation of nervous system, unspecified; G40.309 Generalized idiopathic epilepsy and epileptic syndromes, not intractable, without status epilepticus
CPT/HCPCS: 95714; 95720

== ENCOUNTER → 2022-04-24 12:31 | Outpatient (BNVA) | payer MEDICARE, MEDICAID, SELFPAY | PROVIDERS: PCP Family Medicine; Referring Provider Family Medicine; Visit Provider Psychiatry & Neurology Neurology ==

== ENCOUNTER → 2022-09-03 09:18 | Outpatient (BNVA) | payer MEDICARE, MEDICAID, SELFPAY | PROVIDERS: PCP Family Medicine; Referring Provider Family Medicine; Visit Provider Psychiatry & Neurology Neurology | DX: G40.919 Epilepsy, unspecified, intractable, without status epilepticus (principal) | CPT/HCPCS: 99215 ==

== ENCOUNTER → 2022-12-03 11:06 | Outpatient (BNVA) | payer MEDICARE, MEDICAID, SELFPAY | PROVIDERS: PCP Family Medicine; Referring Provider Family Medicine; Visit Provider Psychiatry & Neurology Neurology | DX: G40.919 Epilepsy, unspecified, intractable, without status epilepticus (principal) | CPT/HCPCS: 99213 ==

== ENCOUNTER 2023-04-01 11:53 | Inpatient (IN) | payer MEDICARE, MEDICAID, SELFPAY ==
[2023-04-01] VITALS (22 sets, daily range): BP systolic 94–134; BP diastolic 31–81; PULSE 76–106; RESP 16–18; TEMP 35.9–36.9; O2SAT 91–98
--- NOTE | 2023-04-01 11:54 | W.ED.GENAD ---
HPI General Date/Time Provider Initiated Documentation: 04/01/23 11:53. HPI Narrative: 47 year-old female presents to ED today by EMS with a chief complaint of Covid-19- patient has a TBI, is non-verbal, lives at a care-home in [place], [place]- reports of high fever, cough, and not making urine per staff with onset over the past couple days. Quality described as unable to qualify- patient has active cough, no radiation to intractable nausea/vomiting per staff. Severity is described as unable to quantify. Palliating factors include prn Tylenol/ibuprofen. Provoking factors include nothing specific. Patient not anticoagulated. Related Data Home Medications Medication Instructions Recorded Confirmed nystatin 100,000 unit/gram topical 1 applic topical BID #30 grams 03/05/22 04/01/23 cream divalproex 125 mg tablet,delayed See Rx Instructions PO BID #330 09/29/22 04/01/23 release tab-caps clobazam 10 mg tablet 5 mg (1/2 x 10 mg) PO QHS #45 tabs 12/03/22 04/01/23 bisacodyl 10 mg rectal suppository 10 mg ID DAILY #90 supp 03/17/23 04/01/23 (Dulcolax (bisacodyl)) starch (thickening) ([employer]iafoods See Rx Instructions PO AC #850 03/26/23 04/01/23 Thick-It #2 oral powder) grams carbamazepine 100 mg chewable See Rx Instructions PO TID #180 03/31/23 04/01/23 tablet tabs molnupiravir 200 mg capsule (EUA) 800 mg (4 x 200 mg) PO Q12H 5 days 03/31/23 04/01/23 #40 caps Previous Rx's Medication Instructions Recorded nystatin 100,000 unit/gram topical 1 applic topical BID #30 grams 03/05/22 cream divalproex 125 mg tablet,delayed See Rx Instructions PO BID #330 09/29/22 release tab-caps clobazam 10 mg tablet 5 mg (1/2 x 10 mg) PO QHS #45 tabs 12/03/22 bisacodyl 10 mg rectal suppository 10 mg ID DAILY #90 supp 03/17/23 (Dulcolax (bisacodyl)) starch (thickening) ([employer]iafoods See Rx Instructions PO AC #850 03/26/23 Thick-It #2 oral powder) grams carbamazepine 100 mg chewable See Rx Instructions PO TID #180 03/31/23 tablet tabs molnupiravir 200 mg capsule (EUA) 800 mg (4 x 200 mg) PO Q12H 5 days 03/31/23 #40 caps Allergies Allergy/AdvReac Type Severity Reaction Status Date / Time sulfamethoxazole AdvReac Intermediate NAUSEA, Verified 12/03/22 11:16 [From Bactrim] VOMITING trimethoprim [From Bactrim] AdvReac Intermediate NAUSEA, Verified 12/03/22 11:16 VOMITING General Stated Complaint: RespSymp TYE: 3 Review of Systems All systems reviewed & are unremarkable except as noted in HPI and below Exam Narrative Exam Narrative: GENERAL APPEARANCE: Well-nourished, toxic, awake and alert but fatigued, atraumatic, no acute distress. SKIN: Warm, pale, dry, intact, without rashes/lesions/ulcerations. + skin tenting. HEAD: Normocephalic, atraumatic, normal hair distribution for gender/age. EYES: Pupils PERRLA, EOMs intact without nystagmus, normal conjunctiva, no exudates on lids/lashes. ENT: Nares patent, no circumoral cyanosis, no facial swelling, dry mucous membraines NECK: Supple, trachea midline, painless cervical ROM. LUNGS/CHEST: Lungs - moving air diffusely, coarse rhonchi, no wheezing, non-labored respirations, normal A/P diameter, symmetrical expansion, no chest wall deformity HEART (CV/PV): Regular rate and rhythm without murmur, no peripheral edema, no JVD. ABDOMEN: Soft, non-distended, no guarding, no tenderness. MSK: Normal ROM, no swelling/deformity to bilateral UEs or LEs, moving all extremities without weakness, no cyanosis, spine midline without tenderness, normal curvature. NEURO: Mental Status - alert to verbal stimuli No facial droop, no forehead involvement. Motor: No focal weakness - strength 5/5 in bilateral UEs and LEs, proximal and distal, symmetric, able to move extremities Sensory: sensation intact to light touch globally. Gait NT. PSYCH: euthymic, cooperative, pleasant, non-verbal. Course Vital Signs Vital signs: Vital Signs Temperature 36.9 C 04/01/23 11:40 Pulse 79 04/01/23 11:40 Respiratory Rate 18 04/01/23 11:40 Blood Pressure 119/59 L 04/01/23 11:40 Pulse Oximetry 98 04/01/23 11:40 Temperature 36.9 C 04/01/23 11:40 Pulse 79 04/01/23 11:40 Respiratory Rate 18 04/01/23 11:40 Respiratory Effort Normal 04/01/23 11:48 Blood Pressure 119/59 L 04/01/23 11:40 Pulse Oximetry 98 04/01/23 11:40 Oxygen Delivery Method Room Air 04/01/23 11:40 Oxygen Flow Rate 0 04/01/23 11:40 Medical Decision Making This dictation utilizes [id number] dictation software and may contain unedited grammatical errors. 47 y/o F presents to ED today with a chief complaint of reports of high fever, cough, low urine output, and Covid-19 from care facility- patient has a TBI. Patient appears very dry at general appearance. Patients' medical history: cerebral palsy, seizure. Family and social history: lives at shelter full-time. Mother Kenna is on HIPPA compliance paperwork can be reached through chart contacts. Pertinent exam findings / vital signs include coarse rhonchi to lungs, dry and dehydrated, benign abdomen. Differential / pathologies of concern include Covid-19, Dehydration. Diagnostic studies of: -CBC, CMP, lactate, cardiac troponin, BNP, lipase, ESR, CRP, VBG, CK, magnesium, procalcitonin, D-dimer, EKG, urinalysis, blood cultures, COVID/flu/RSV PCR, CXR. -CBC shows a leukocytosis of 12.26, elevated absolute neutrophils to 8 -D-dimer elevated at 730 but unlikely PE with out hypoxia, no tachycardia, negative years criteria -VBG within normal limits -UA shows moderate blood and trace leuk esterase, 3-5 white blood cells on micro - urine Cx pending -COVID-positive, negative flu and RSV -CXR portable shows lower lobe infiltrate versus atelectasis. -EKG shows Sinus rhythm at 78 bpm with left axis deviation, P waves followed by narrow complex QRS, good R wave progression, no ST changes of ischemia, normal QT QTc. Interventions of: -1L LR IVF - had wet diaper with clear urine here in ED. -no hypoxia throughout visit. -IV Tylenol, IV toradol -Giving IV albumin, had mildly deranged LFTs, low albumin. -Giving IV Ceftriaxone for UTI while awaiting Urine Cx's ED Course/Assessment/Plan: Nonverbal cerebral palsy patient presents from shelter in [facility] 47-year-old female, has a COVID and has been coughing with poor p.o. intake, they state that she has not had any urine output for almost a day. She did have significant clear urine output here with IV fluids, she has been not hypoxic throughout visit with stable vitals, laboratory workup shows VBG within normal limits, small white count with possible UTI and was covered with ceftriaxone here, will await culture for continuation of treatment. Patient did have some desaturations around the time of shift change to 87% RA- will likely need admission for Covid-19 with respiratory failure Consulted with Hospitalist Dr. Garcia who accepts for admission. Will start dexamethasone and remdesivir. Disposition of Covid-19. Patient verbalized understanding of the plan and return to ED criteria and engaged in shared decision making. Medical Records Medical records reviewed: Yes I reviewed the patient's medical records. Imaging Data Radiologic Study: Attestation: I personally reviewed and interpreted this imaging study as follows: Imaging: X-Ray Radiologist's impression: EXAM: XR PORTABLE CHEST AP CLINICAL HISTORY: cough, covid + TECHNIQUE: 2D digital imaging was performed. COMPARISON: CR,XR XR CHEST 1V IN DI DEPT from 02/11/2022 FINDINGS: Exam limited by poor pulmonary inflation and patient positioning. LUNGS: Lungs not well inflated especially on the left. There are linear density seen near the left lung which could represent atelectasis versus pneumonia. No pleural abnormality seen. HEART: Normal size. AORTA: Normal diameter. BONES: Unremarkable for age. Soft tissues: Mild gaseous distension of bowel loops. IMPRESSION: Lower lobe infiltrate and/or atelectasis. Lab Data Lab results reviewed: Yes I reviewed the patient's lab results. Labs: 04/01/23 14:00 Urine - Reflex from Ua Urine Culture - Pending 04/01/23 12:26 Blood Blood Culture - Pending 04/01/23 12:00 Blood Blood Culture - Pending Laboratory Tests Range/Units 04/01/23 04/01/23 04/01/23 12:00 12:34 14:00 WBC (4.4-10.8) 10^3/uL 12.26 H RBC (3.93-5.22) 10^6/uL 4.16 Hgb (11.2-15.7) g/dL 14.2 Hct (36.0-46.0) % 41.1 MCV (80-95) fL 99 H MCH (27.0-33.0) pg 34.1 H MCHC (32.0-36.0) % 34.5 RDW (11.7-14.6) % 12.6 Plt Count (130-400) 10^3/uL 90 L MPV (8.0-11.0) fL 11.6 H Immature Gran % 0.8 Neutrophils % 65.7 Lymphocytes % 15.2 Monocytes % 17.4 Eosinophils % 0.3 Basophils % 0.6 Nucleated RBC % (0.0-0.3) % 0.0 Absolute Neutrophils (1.2-6.7) 10^3/uL 8.05 H Absolute Lymphocytes (1.2-3.4) 10^3/uL 1.86 Absolute Monocytes (0.1-0.8) 10^3/uL 2.13 H Absolute Eosinophils (0.0-0.7) 10^3/uL 0.04 Absolute Basophils (0.0-0.2) 10^3/uL 0.07 RBC Morphology Normal ESR (0-20) mm/hr 12 D-Dimer (<500) ng/mlFEU 730 H VBG pH (7.31-7.41) 7.39 VBG pCO2 (41-51) mmHg 45 VBG pO2 mmHg 47 VBG HCO3 (23-28) mmol/L 27 VBG Total CO2 (24-29) mmol/L 25 VBG O2 Saturation % 83 VBG Base Excess (-2-3) mmol/L 2 VBG Lactate (0.6-1.4) mmol/L 1.3 Sodium (136-145) mmol/L 140 Potassium (3.5-5.1) mmol/L 4.5 Chloride (98-107) mmol/L 104 Carbon Dioxide (21.0-32.0) mmol/L 25.1 Anion Gap (3-11) mmol/L 10.9 BUN (7-18) mg/dL 12 Creatinine (0.55-1.02) mg/dL 0.6 Est GFR (CKD-EPI 2020) (mL/min/1.73m2) 109.96 Glucose (74-106) mg/dL 91 Calcium (8.5-10.1) mg/dL 8.6 Magnesium (1.8-2.4) mg/dL 2.1 Total Bilirubin (0.2-1.0) mg/dL 0.3 AST (15-37) U/L 44 H ALT (14-59) U/L 11 L Alkaline Phosphatase (46-116) U/L 78 Creatine Kinase (26-192) U/L 70 Troponin I (< or =60) ng/L < 50 NT-Pro-B Natriuret Pep (<300) pg/mL 266 Total Protein (6.4-8.2) g/dL 6.6 Albumin (3.4-5.0) g/dL 2.6 L Lipase (16-77) U/L 36 Procalcitonin ng/mL < 0.1 Urine Color (Yellow) Yellow Urine Clarity (Clear) Clear Urine pH (5-8) 5.5 Ur Specific [place] (1.005-1.025) <= 1.005 Urine Protein (Negative) mg/dL Negative Urine Ketones (Negative) mg/dL Negative Urine Blood (Negative) Moderate H Urine Nitrite (Negative) Negative Urine Bilirubin (Negative) Negative Urine Urobilinogen (Up to 0.2) mg/dL 0.2 Ur Leukocyte Esterase (Negative) Trace H Urine RBC (0-2) HPF 10-20 H Urine WBC (0-5) HPF 3-5 Ur Epithelial Cells (Negative) HPF Rare Urine Crystals (Negative) HPF Negative Urine Bacteria (Negative) HPF Rare Urine Casts (Negative) LPF Negative Urine Mucus (Negative) Negative Ur Culture Indicated? 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 Patient followed at [facility]. Onychomycosis (Chronic) Hearing loss (Chronic) Generalized convulsive epilepsy (Chronic) Cerebral palsy (Chronic) Acne (Chronic) Macrocytic anemia (Chronic) Family History Mother No problems noted. Father No problems noted. Grandfather No problems noted. Grandmother No problems noted. Social History Smoking/Tobacco Use Status: Never Smoking risk assessment performed?: Yes Alcohol Intake: never Drug use: Never Substance use type: does not use Do you feel safe in your relationship?: Yes Discharge Plan Disposition Patient Disposition: Admit to [facility] Condition: Fair Discharge Details Chief Complaint: RespSymp Clinical Impression: COVID-19 Primary Care Provider: Paula Lorenzo ED Provider: Jose D Amaya Home Meds and New Rx's Prescriptions: No Action clobazam 10 mg tablet 5 mg PO QHS Qty: 45 3RF nystatin 100,000 unit/gram cream 1 applic topical BID Qty: 30 0RF divalproex 125 mg tablet,delayed release (DR/EC) See Rx Instructions PO BID Qty: 330 8RF Rx Instructions: 5tab in AM; 6 tab in PM PO twice a day; bisacodyl [Dulcolax (bisacodyl)] 10 mg suppository 10 mg ID DAILY Qty: 90 5RF Diafoods Thick-It #2 Powder See Rx Instructions PO AC Qty: 850 12RF Rx Instructions: 1 dose orally before meals; carbamazepine 100 mg tablet,chewable See Rx Instructions PO TID Qty: 180 12RF Rx Instructions: 2 tabs in AM; 1 tab noon; 3 tabs in PM molnupiravir 200 mg capsule 800 mg PO Q12H 5 Days Qty: 40 0RF
--- NOTE | 2023-04-01 12:15 | RT.EKG_ITS ---
APPROVED REPORT Exam: Resting ECG Reason for Exam: baseline/screening Patient Location: E HR:78 bpm ECG Measurements Heart Rate 78 AXIS VA 133 P 71 QRSd 74 QRS -39 QT 374 T 31 QTc 426 Conclusion Sinus rhythm...normal P axis, V-rate 60- 99 Left axis deviation...QRS axis (-30,-90) sinus rhtyhm, left axis, normal intervals, t wave inversion lead V1
[2023-04-01] MEDS: Lactated Ringers 1,000 ML 1000 ML IV (12:36)
[2023-04-01 12:39] LABS: Lactate 1.3 mmol/L (0.6-1.4)
[2023-04-01 12:40] LABS: Absolute Basophil Count 0.07 10^3/uL (0.0-0.2); Absolute Eosinophil Count 0.04 10^3/uL (0.0-0.7); Absolute Lymphocyte Count 1.86 10^3/uL (1.2-3.4); Absolute Monocyte Count 2.13 10^3/uL (0.1-0.8); Basophils % 0.6; Eosinophils % 0.3; HCT 41.1 % (36.0-46.0); HGB 14.2 g/dL (11.2-15.7); Immature Grans % 0.8; Lymphocytes % 15.2; MCH 34.1 pg (27.0-33.0); MCHC 34.5 % (32.0-36.0); MCV 99 fL (80-95); MPV 11.6 fL (8.0-11.0); Monocytes % 17.4; Neutrophils % 65.7; RBC 4.16 10^6/uL (3.93-5.22); RDW 12.6 % (11.7-14.6); RDW-SD 45.9 fL; WBC 12.26 10^3/uL (4.4-10.8)
[2023-04-01 12:41] LABS: Absolute Neutrophil Count 8.05 10^3/uL (1.2-6.7)
[2023-04-01 12:42] LABS: BE (Venous) 2 mmol/L (-2-3); HCO3 (Venous) 27 mmol/L (23-28); O2 Sat (Venous) 83 %; TCO2 (Venous) 25 mmol/L (24-29); pCO2 (Venous) 45 mmHg (41-51); pH (Venous) 7.39 (7.31-7.41); pO2 (Venous) 47 mmHg
[2023-04-01 12:52] LABS: Diff Comment Diff Reviewed; Platelet Count 90 10^3/uL (130-400); RBC Morphology Normal
[2023-04-01 13:04] LABS: ESR 12 mm/hr (0-20)
[2023-04-01 13:10] LABS: ALT 11 U/L (14-59); AST 44 U/L (15-37); Albumin 2.6 g/dL (3.4-5.0); Alkaline Phosphatase 78 U/L (46-116); Anion Gap 10.9 mmol/L (3-11); BUN 12 mg/dL (7-18); Bilirubin, Total 0.3 mg/dL (0.2-1.0); CO2 25.1 mmol/L (21.0-32.0); CREATININE 0.6 mg/dL (0.55-1.02); Calcium 8.6 mg/dL (8.5-10.1); Chloride 104 mmol/L (98-107); Creatine Kinase 70 U/L (26-192); Estimated GFR 109.96 (mL/min/1.73m2); Glucose 91 mg/dL (74-106); Lipase 36 U/L (16-77); Magnesium 2.1 mg/dL (1.8-2.4); NT-proBNP 266 pg/mL (<300); Potassium 4.5 mmol/L (3.5-5.1); Sodium 140 mmol/L (136-145); Total Protein 6.6 g/dL (6.4-8.2); Troponin I < 50 ng/L (< or =60)
[2023-04-01 13:14] LABS: D-Dimer 730 ng/mlFEU (<500)
[2023-04-01 13:15] LABS: Procalcitonin < 0.1 ng/mL
--- NOTE | 2023-04-01 14:00 | DI.RAD_ITS ---
Exam(s) XR PORTABLE CHEST AP EXAM: XR PORTABLE CHEST AP CLINICAL HISTORY: cough, covid + TECHNIQUE: 2D digital imaging was performed. COMPARISON: CR,XR XR CHEST 1V IN DI DEPT from 02/11/2022 FINDINGS: Exam limited by poor pulmonary inflation and patient positioning. LUNGS: Lungs not well inflated especially on the left. There are linear density seen near the left l fabian which could represent atelectasis versus pneumonia. No pleural abnormality seen. HEART: Normal size. AORTA: Normal diameter. BONES: Unremarkable for age. Soft tissues: Mild gaseous distension of bowel loops. IMPRESSION: Lower lobe infiltrate and/or atelectasis. DATA REPOSITORY: RADIATION DOSE DELIVERED:
[2023-04-01 14:23] LABS: Bilirubin Negative (Negative); Blood Moderate (Negative); Clarity Clear (Clear); Glucose Negative (Negative); Ketones Negative (Negative); Leukocyte Esterase Trace (Negative); Nitrite Negative (Negative); Specific Gravity <= 1.005 (1.005-1.025); Urobilinogen 0.2 mg/dL (Up to 0.2); pH 5.5 (5-8)
[2023-04-01 14:25] LABS: Influenza A PCR Negative (Negative); Influenza B PCR Negative (Negative); RSV PCR Negative (Negative)
[2023-04-01 14:27] LABS: COVID-19 PCR Positive (Negative); Source Nasopharynx
[2023-04-01 14:28] LABS: Bacteria Rare HPF (Negative); C & S Indicated? Yes; Casts Negative LPF (Negative); Crystals Negative HPF (Negative); Epithelial Cells Rare HPF (Negative); Mucus Negative (Negative)
[2023-04-01] MEDS: Ketorolac 15 MG/ML VIAL IVP (14:52)
[2023-04-01] MEDS: cefTRIAXone 2 GM/50 ML BAG IVPB (15:15)
[2023-04-01] MEDS: ALBUMIN HUMAN 25 GM/100 ML BTL IVPB (15:32)
[2023-04-01 16:03] LABS: Troponin I < 50 ng/L (< or =60)
--- NOTE | 2023-04-01 16:12 | HPE_ITS ---
Date of service: 04/01/23 Time of Service: 16:12 Assessment and Plan Assessment and plan (1) COVID-19: Status: Acute Assessment and plan: with oxygen requirements admit to med/surg remdesivir and dexamethasone IV fluids (2) Generalized convulsive epilepsy: Status: Chronic Assessment and plan: stable, continue home medications and monitor (3) Cerebral palsy: Status: Chronic Assessment and plan: at baseline, fully dependant on all care and feedings. pureed diet with thickened fluids patient is full code discussed with Dr Scott History of Present Illness History of Present Illness Chief Complaint: Hypoxia, dehydration Narrative: This is a 47-year-old female patient who is wheelchair-bound aphasic and requires 24/7 care following a TBI, history of epilepsy followed by neurology who presented to the emergency department by EMS for evaluation of failure to thrive recently diagnosed with COVID-19. Caregivers report that she has had poor p.o. intake and has not voided since yesterday. She she was found to be hypoxic with oxygen requirements of 2 L nasal cannula to maintain sats in the mid 90s. She received an IV fluid bolus and was able to void. Her urine was mildly suspicious for urinary tract infection so she was given ceftriaxone in the emergency department. Hospitalist services was requested to admit her to the floor for IV hydration. She will be started on treatment for COVID-19 as she is hypoxic/symptomatic. 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 Patient followed at [facility]. Onychomycosis (Chronic) Hearing loss (Chronic) Generalized convulsive epilepsy (Chronic) Cerebral palsy (Chronic) Acne (Chronic) Macrocytic anemia (Chronic) Family History Mother No problems noted. Father No problems noted. Grandfather No problems noted. Grandmother No problems noted. Social History Smoking/Tobacco Use Status: Never Smoking risk assessment performed?: Yes Alcohol Intake: never Drug use: Never Substance use type: does not use Housing: other Do you feel safe in your relationship?: Yes Meds Allergies and Home Medications Allergies Allergy/AdvReac Type Severity Reaction Status Date / Time sulfamethoxazole AdvReac Intermediate NAUSEA, Verified 12/03/22 11:16 [From Bactrim] VOMITING trimethoprim [From Bactrim] AdvReac Intermediate NAUSEA, Verified 12/03/22 11:16 VOMITING Home Medications Medication Instructions Recorded Confirmed Type nystatin 100,000 unit/gram topical 1 applic topical BID #30 grams 03/05/22 04/01/23 Rx cream divalproex 125 mg tablet,delayed See Rx Instructions PO BID #330 09/29/22 04/01/23 Rx release tab-caps clobazam 10 mg tablet 5 mg (1/2 x 10 mg) PO QHS #45 tabs 12/03/22 04/01/23 Rx bisacodyl 10 mg rectal suppository 10 mg AR DAILY #90 supp 03/17/23 04/01/23 Rx (Dulcolax (bisacodyl)) starch (thickening) ([employer]iafoods See Rx Instructions PO AC #850 03/26/23 04/01/23 Rx Thick-It #2 oral powder) grams carbamazepine 100 mg chewable See Rx Instructions PO TID #180 03/31/23 04/01/23 Rx tablet tabs molnupiravir 200 mg capsule (EUA) 800 mg (4 x 200 mg) PO Q12H 5 days 03/31/23 04/01/23 Rx #40 caps Exam Const General: frail appearing and ill appearing acutely and chronically Nutritional Appearance: cachectic Orientation: alert and awake HENGA Head: normal to inspection and atraumatic Eyes General: appearance normal, both eyes and all related structures Conjunctivae: conjunctivae normal Neck Neck: normal visual inspection, full ROM, no meningeal signs and supple Resp Effort & Inspection: normal respiratory effort Cardio Rate: regular rate Rhythm: regular rhythm GI Palpation: soft and nontender Skin General skin exam: no rashes or lesions noted Neuro General: patient awake and moves all extremities Extrem Other: Baseline contractures. Otherwise unremarkable Results Labs 04/02/23 06:45 04/02/23 06:45 Labs: Laboratory Results - last 24 hr 04/01/23 04/01/23 04/01/23 12:00 12:34 14:00 WBC 12.26 H RBC 4.16 Hgb 14.2 Hct 41.1 MCV 99 H MCH 34.1 H MCHC 34.5 RDW 12.6 Plt Count 90 L MPV 11.6 H Immature Gran % 0.8 Neutrophils % 65.7 Lymphocytes % 15.2 Monocytes % 17.4 Eosinophils % 0.3 Basophils % 0.6 Nucleated RBC % 0.0 Absolute Neutrophils 8.05 H Absolute Lymphocytes 1.86 Absolute Monocytes 2.13 H Absolute Eosinophils 0.04 Absolute Basophils 0.07 RBC Morphology Normal ESR 12 D-Dimer 730 H VBG pH 7.39 VBG pCO2 45 VBG pO2 47 VBG HCO3 27 VBG Total CO2 25 VBG O2 Saturation 83 VBG Base Excess 2 VBG Lactate 1.3 Sodium 140 Potassium 4.5 Chloride 104 Carbon Dioxide 25.1 Anion Gap 10.9 BUN 12 Creatinine 0.6 Est GFR (CKD-EPI 2020) 109.96 Glucose 91 Calcium 8.6 Magnesium 2.1 Total Bilirubin 0.3 AST 44 H ALT 11 L Alkaline Phosphatase 78 Creatine Kinase 70 Troponin I < 50 NT-Pro-B Natriuret Pep 266 Total Protein 6.6 Albumin 2.6 L Lipase 36 Procalcitonin < 0.1 Urine Color Yellow Urine Clarity Clear Urine pH 5.5 Ur Specific [place] <= 1.005 Urine Protein Negative Urine Ketones Negative Urine Blood Moderate H Urine Nitrite Negative Urine Bilirubin Negative Urine Urobilinogen 0.2 Ur Leukocyte Esterase Trace H Urine RBC 10-20 H Urine WBC 3-5 Ur Epithelial Cells Rare Urine Crystals Negative Urine Bacteria Rare Urine Casts Negative Urine Mucus Negative Ur Culture Indicated? Yes Urine Glucose Negative COVID-19 Source Nasopharynx SARS-CoV-2 (PCR) Positive A Influenza Type A (PCR) Negative Influenza Type B (PCR) Negative RSV (PCR) Negative 04/01/23 15:25 WBC RBC Hgb Hct MCV MCH MCHC RDW Plt Count MPV Immature Gran % Neutrophils % Lymphocytes % Monocytes % Eosinophils % Basophils % Nucleated RBC % Absolute Neutrophils Absolute Lymphocytes Absolute Monocytes Absolute Eosinophils Absolute Basophils RBC Morphology ESR D-Dimer VBG pH VBG pCO2 VBG pO2 VBG HCO3 VBG Total CO2 VBG O2 Saturation VBG Base Excess VBG Lactate Sodium Potassium Chloride Carbon Dioxide Anion Gap BUN Creatinine Est GFR (CKD-EPI 2020) Glucose Calcium Magnesium Total Bilirubin AST ALT Alkaline Phosphatase Creatine Kinase Troponin I < 50 NT-Pro-B Natriuret Pep Total Protein Albumin Lipase Procalcitonin Urine Color Urine Clarity Urine pH Ur Specific [place] Urine Protein Urine Ketones Urine Blood Urine Nitrite Urine Bilirubin Urine Urobilinogen Ur Leukocyte Esterase Urine RBC Urine WBC Ur Epithelial Cells Urine Crystals Urine Bacteria Urine Casts Urine Mucus Ur Culture Indicated? Urine Glucose COVID-19 Source SARS-CoV-2 (PCR) Influenza Type A (PCR) Influenza Type B (PCR) RSV (PCR) Last Vital Signs Temp 36.9 C 04/01/23 11:57 Pulse 83 04/01/23 12:02 Resp 18 04/01/23 11:57 BP 114/61 04/01/23 12:02 Pulse Ox 98 04/01/23 12:10 Time Spent Time spent with Patient: 40-54 minutes Time was spent: preparing to see the patient(eg.review tests), obtaining and/or reviewing separately otained hiistory, ordering medications,tests, procedures and indepentently interpreting results
[2023-04-01] MEDS: Normal Saline 500 ML IV (16:15)
[2023-04-01] MEDS: REMDESIVIR 200 MG in Normal Saline 250 ML 250 MG IVPB (18:32)
[2023-04-01] MEDS: Nystatin CREAM 30 GM TUBE TP (23:15)
[2023-04-01] MEDS: Normal Saline 1,000 ML 150 ML IV (23:29)
[2023-04-01] MEDS: carBAMazepine 100 MG CHEW 300 MG CH (23:30)
[2023-04-02] MEDS: Normal Saline 1,000 ML 150 ML IV (05:54)
[2023-04-02 07:06] LABS: Abs Immature Grans 0.05 10^3/uL (0.0-0.06); Absolute Basophil Count 0.06 10^3/uL (0.0-0.2); Absolute Lymphocyte Count 1.62 10^3/uL (1.2-3.4); Absolute Monocyte Count 1.11 10^3/uL (0.1-0.8); Absolute Neutrophil Count 5.32 10^3/uL (1.2-6.7); Basophils % 0.7; HCT 35.4 % (36.0-46.0); HGB 11.9 g/dL (11.2-15.7); Immature Grans % 0.6; Lymphocytes % 19.9; MCH 33.6 pg (27.0-33.0); MCHC 33.6 % (32.0-36.0); MCV 100 fL (80-95); MPV 11.1 fL (8.0-11.0); Monocytes % 13.6; Neutrophils % 65.2; RBC 3.54 10^6/uL (3.93-5.22); RDW 12.4 % (11.7-14.6); RDW-SD 46.3 fL; WBC 8.16 10^3/uL (4.4-10.8)
[2023-04-02 07:24] LABS: BUN 4 mg/dL (7-18); CO2 24.8 mmol/L (21.0-32.0); CREATININE 0.4 mg/dL (0.55-1.02); Calcium 7.8 mg/dL (8.5-10.1); Estimated GFR 121.25 (mL/min/1.73m2); Glucose 77 mg/dL (74-106)
[2023-04-02 07:30] LABS: Diff Comment Diff Reviewed; Platelet Count 82 10^3/uL (130-400); RBC Morphology Normal
[2023-04-02 07:32] LABS: Anion Gap 11.2 mmol/L (3-11); Chloride 113 mmol/L (98-107); Sodium 149 mmol/L (136-145)
[2023-04-02 07:33] LABS: Potassium 3.3 mmol/L (3.5-5.1)
[2023-04-02 08:20] VITALS: BP 137/72; PULSE 81; RESP 16; TEMP 37.2; O2SAT 94
[2023-04-02] MEDS: Nystatin CREAM 30 GM TUBE TP ×2 (09:30→20:38)
--- NOTE | 2023-04-02 13:36 | PDOC.CMIN ---
Date of service: 04/02/23 Time of Service: 13:36 Care Management Initial Assmt Initial Assessment REASON FOR HOSPITALIZATION:: COVID-19, dehydration PREVIOUS FUNCTIONAL STATUS/SOCIAL/FAMILY SUPPORTS:: Allie resides in a [place], [place] with her caregiver, Breana Rahman. She has cerbral palsy and is non-verbal and wheelchair-bound as well as aphasic. She requires 24/7 care following a TBI, history of epilepsy followed by neurology. who presented to the emergency department by EMS for evaluation of failure to thrive recently diagnosed with COVID-19. Caregivers report that she has had poor p.o. intake and has not voided since yesterday. She she was found to be hypoxic with oxygen requirements of 2 L nasal cannula to maintain sats in the mid 90s. CURRENT FUNCTIONAL STATUS:: On COVID precautions, Caregiver is at [facility] and supporting her care needs. CM spoke with Breana, caregiver who shared feeling that Allie was doing much better than yesterday. Breana brought Allie's Seizure medication to [facility]. ADVANCE DIRECTIVES:: Guardian on file. Has patient been provided with info about the portal/API?: No Did the patient sign up for the portal?: No CODE STATUS:: Full Code INSURANCE COVERAGE / FINANCIAL ISSUES:: Medicare, Medicaid CURRENT HOME/COMMUNITY SERVICES/EQUIPMENT:: time analysis clerk caregiver, home provider, DME equipment to support full care needs. PRIMARY CARE PHYSICIAN:: Paula Lorenzo DO. POTENTIAL DISCHARGE NEEDS:: Coordinated return to home provider, nursing home. PATIENT/FAMILY EDUCATION NEEDS:: Review discharge instructions, discuss Ask Me Three. ANTICIPATED BARRIERS TO DISCHARGE:: None identified. TRANSPORTATION:: Via private vehicle with caregiver, Breana. PLAN:: Allie will return home when ready per MD, and resume previous community based supports. She will follow up with her PCP and plan of care as prescribed. She will transport via private vehicle with caregiver, Breana. 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 Patient followed at [facility]. Onychomycosis (Chronic) Hearing loss (Chronic) Generalized convulsive epilepsy (Chronic) Cerebral palsy (Chronic) Acne (Chronic) Macrocytic anemia (Chronic) Family History Mother No problems noted. Father No problems noted. Grandfather No problems noted. Grandmother No problems noted. Social History Smoking/Tobacco Use Status: Never Smoking risk assessment performed?: Yes Alcohol Intake: never Drug use: Never Substance use type: does not use Housing: other Do you feel safe in your relationship?: Yes SDOH(Care Management) Screening Will the Patient Participate in the Screening?: Unable to obtain
[2023-04-02] MEDS: cefTRIAXone 1 GM/50 ML BAG IVPB (14:01)
--- NOTE | 2023-04-02 15:42 | W.PM.PROGNOT ---
Date of Service Date of service: 04/02/23 Time of Service: 15:43 Assessment and Plan Assessment and plan (1) COVID-19: Status: Acute Assessment and plan: with oxygen requirements admit to med/surg remdesivir and dexamethasone IV fluids (2) Bacteremia: Status: Acute Assessment and plan: Blood cultures growing gram-positive cocci. Will initiate Zyvox while ID and sensitivities are pending. Did not match what was growing in her urine which was E. coli. It is possible this is a contaminant. Will redraw set of cultures (3) UTI (urinary tract infection): Status: Acute Assessment and plan: Urine growing E. coli we will continue ceftriaxone pending sensitivities. (4) Generalized convulsive epilepsy: Status: Chronic Assessment and plan: stable, continue home medications and monitor (5) Cerebral palsy: Status: Chronic Assessment and plan: at baseline, fully dependant on all care and feedings. pureed diet with thickened fluids patient is full code discussed with Dr Blake Exam Const General: frail appearing and ill appearing acutely and chronically Nutritional Appearance: cachectic Orientation: alert and awake HENMT Head: normal to inspection and atraumatic Eyes General: appearance normal, both eyes and all related structures Conjunctivae: conjunctivae normal Neck Neck: normal visual inspection, full ROM, no meningeal signs and supple Resp Effort & Inspection: normal respiratory effort Cardio Rate: regular rate Rhythm: regular rhythm GI Palpation: soft and nontender Skin General skin exam: no rashes or lesions noted Neuro General: patient awake and moves all extremities Extrem Other: Baseline contractures. Otherwise unremarkable Objective Last Vital Signs Temp 37.2 C 04/02/23 08:20 Pulse 81 04/02/23 08:20 Resp 16 04/02/23 08:20 BP 137/72 04/02/23 08:20 Pulse Ox 94 04/02/23 08:20 Laboratory Results - last 24 hr 04/01/23 04/02/23 15:25 06:45 WBC 8.16 RBC 3.54 L Hgb 11.9 D Hct 35.4 L MCV 100 H MCH 33.6 H MCHC 33.6 RDW 12.4 Plt Count 82 L MPV 11.1 H Immature Gran % 0.6 Neutrophils % 65.2 Lymphocytes % 19.9 Monocytes % 13.6 Eosinophils % 0.0 Basophils % 0.7 Nucleated RBC % 0.0 Absolute Neutrophils 5.32 Absolute Lymphocytes 1.62 Absolute Monocytes 1.11 H Absolute Eosinophils 0.00 Absolute Basophils 0.06 RBC Morphology Normal Sodium 149 H Potassium 3.3 L D Chloride 113 H Carbon Dioxide 24.8 Anion Gap 11.2 H BUN 4 L Creatinine 0.4 L Est GFR (CKD-EPI 2020) 121.25 Glucose 77 Calcium 7.8 L Troponin I < 50 Time Spent with Patient Time Spent with Patient: 25-34 minutes Time was spent: preparing to see the patient(eg.review tests), obtaining and/or reviewing separately otained hiistory, ordering medications,tests, procedures and indepentently interpreting results
[2023-04-02 16:03] VITALS: BP 140/85; PULSE 81; RESP 18; TEMP 36.5; O2SAT 90
[2023-04-02] MEDS: REMDESIVIR 100 MG in Normal Saline 250 ML 250 MG IVPB (16:59)
[2023-04-02] MEDS: Normal Saline Flush 10 ML SYR (17:48)
[2023-04-02] MEDS: LINEZOLID 600 MG/300 ML BAG 300 MG IVPB (18:32)
[2023-04-02] MEDS: Lactated Ringers 1,000 ML 50 ML IV (18:33)
[2023-04-02] MEDS: POTASSIUM CHLORIDE 10 MEQ/100 ML BAG 100 MEQ IVPB ×2 (20:34→22:10)
[2023-04-03 00:03] VITALS: BP 156/80; PULSE 76; RESP 17; TEMP 36.6; O2SAT 96
[2023-04-03] MEDS: LINEZOLID 600 MG/300 ML BAG 300 MG IVPB ×2 (05:47→19:17)
[2023-04-03] MEDS: Nystatin CREAM 30 GM TUBE TP ×2 (09:19→20:35)
--- NOTE | 2023-04-03 09:27 | PGE_ITS ---
Date of Service Date of service: 04/03/23 Time of Service: 09:27 Assessment and Plan Assessment and plan (1) COVID-19: Status: Acute Assessment and plan: Initially with oxygen requirements, on RA sat 95 % this PM Continue remdesivir 3 of 4 doses today Continue dexamethasone Stopping IVF, chemistry normal in COVID positive normotensive patient; will reevaluate in AM (2) Bacteremia: Status: Acute Assessment and plan: First blood cultures growing gram-positive cocci_suspicion for MRSA, 2nd set of blood cultures repeated for contaminant suspicion as UTI showed E. coli. It was also GPC. Will continue IV Zyvox and reorder blood cultures and wait for the first set of negative cultures and further ID and sensitivities on the initial specimen Procal was negative, no lactate elevation on admit (3) UTI (urinary tract infection): Status: Acute Assessment and plan: Urine growing E. coli we will continue ceftriaxone UA pending, considering fosfomycin if still E. coli positive otherwise will discontinue antibiotherapy (4) Generalized convulsive epilepsy: Status: Chronic Assessment and plan: Continue home medications, no acute episode Will continue to monitor (5) Cerebral palsy: Status: Chronic Assessment and plan: Remains at baseline, fully dependant on all care and feedings. pureed diet with thickened fluids, coughing reported without hypoxia might be due to COVID infection Speech and swallow eval ordered patient is full code discussed with Dr Blake (6) On deep vein thrombosis (DVT) prophylaxis: Status: Acute Assessment and plan: Lovenpx 30 mg Sc q24 Subjective Subjective Patient reports: no new complaints, tolerating liquids well, tolerating a regular diet, voiding w/o difficulty, afebrile and fever; denies no flatus, no bowel movement, diarrhea, nausea, vomiting or shortness of breath Exam Narrative Exam Narrative: Constitutional The patient is in bed comfortable without acute distress but cachectic. HENMT: Head is atraumatic, no lymphadenopathy Neck: Normal ROM, no meningeal signs Neuro:alert but unable to assess orient ation, remains non-verbal with poor eye contact d/t history of CB, not following commands. No neurological focal deficit Chest:Chest is symmetrical and thin in appearance Resp: shallow respiratory pattern, speaks in full sentences, unlabored breathing, clear lung bilaterally Cardio: regular rhythm, S1, S2, no murmur, capillary refill<3 sec., bilateral radial and dorsalis pedis pulses are positive and weak GI: Abdomen is rounded, not distended, soft and non tender, bowel sounds are present : no bladder distension Back/spine/Pelvis: No back tenderness Integumentary: No skin lesions or rash Extremities: generalized weakness to bilateral lower and upper extremities Objective Last Vital Signs Temp 36.6 C 04/03/23 00:03 Pulse 76 04/03/23 00:03 Resp 17 04/03/23 00:03 BP 156/80 H 04/03/23 00:03 Pulse Ox 96 04/03/23 00:03 Time Spent with Patient Time Spent with Patient: >50 minutes Time was spent: preparing to see the patient(eg.review tests), ordering medications,tests, procedures, referring, communicating with other health adult live in caregiver, indepentently interpreting results, counseling the patient and care coordination
[2023-04-03 09:30] VITALS: BP 138/82; PULSE 72; RESP 18; TEMP 36.4; O2SAT 95
[2023-04-03 13:01] LABS: Abs Immature Grans 0.05 10^3/uL (0.0-0.06); Absolute Basophil Count 0.01 10^3/uL (0.0-0.2); Absolute Eosinophil Count 0.15 10^3/uL (0.0-0.7); Absolute Lymphocyte Count 1.22 10^3/uL (1.2-3.4); Absolute Neutrophil Count 3.88 10^3/uL (1.2-6.7); Basophils % 0.2; Eosinophils % 2.6; HCT 36.9 % (36.0-46.0); Immature Grans % 0.9; Lymphocytes % 21.4; MCH 34.1 pg (27.0-33.0); MCHC 35.2 % (32.0-36.0); MCV 97 fL (80-95); MPV 10.8 fL (8.0-11.0); Neutrophils % 67.9; Platelet Count 85 10^3/uL (130-400); RBC 3.81 10^6/uL (3.93-5.22); RDW 12.4 % (11.7-14.6); WBC 5.71 10^3/uL (4.4-10.8)
[2023-04-03 13:10] LABS: Anion Gap 10.5 mmol/L (3-11); BUN 3 mg/dL (7-18); CO2 26.5 mmol/L (21.0-32.0); CREATININE 0.6 mg/dL (0.55-1.02); Calcium 8.4 mg/dL (8.5-10.1); Chloride 106 mmol/L (98-107); Estimated GFR 109.96 (mL/min/1.73m2); Glucose 140 mg/dL (74-106); Potassium 4.1 mmol/L (3.5-5.1); Sodium 143 mmol/L (136-145)
[2023-04-03] MEDS: cefTRIAXone 1 GM/50 ML BAG IVPB (13:33)
[2023-04-03] MEDS: Lactated Ringers 1,000 ML 50 ML IV (13:34)
[2023-04-03 14:31] VITALS: BP 127/83; PULSE 79; RESP 17; TEMP 36.3; O2SAT 95
[2023-04-03] MEDS: REMDESIVIR 100 MG in Normal Saline 250 ML 250 MG IVPB (17:54)
[2023-04-03] MEDS: Docusate Sodium 100 MG/10 ML CUP PO (20:33)
[2023-04-04] MEDS: LINEZOLID 600 MG/300 ML BAG 300 MG IVPB (07:31)
[2023-04-04 08:11] LABS: Abs Immature Grans 0.07 10^3/uL (0.0-0.06); Absolute Basophil Count 0.02 10^3/uL (0.0-0.2); Absolute Lymphocyte Count 2.44 10^3/uL (1.2-3.4); Absolute Monocyte Count 0.69 10^3/uL (0.1-0.8); Absolute Neutrophil Count 3.83 10^3/uL (1.2-6.7); Basophils % 0.3; HCT 35.6 % (36.0-46.0); HGB 12.6 g/dL (11.2-15.7); Lymphocytes % 34.6; MCH 33.8 pg (27.0-33.0); MCHC 35.4 % (32.0-36.0); MCV 95 fL (80-95); MPV 10.9 fL (8.0-11.0); Monocytes % 9.8; Neutrophils % 54.3; Platelet Count 107 10^3/uL (130-400); RBC 3.73 10^6/uL (3.93-5.22); RDW-SD 42.4 fL; WBC 7.05 10^3/uL (4.4-10.8)
[2023-04-04 08:19] LABS: Anion Gap 8.7 mmol/L (3-11); BUN 5 mg/dL (7-18); CO2 27.3 mmol/L (21.0-32.0); CREATININE 0.6 mg/dL (0.55-1.02); Chloride 106 mmol/L (98-107); Estimated GFR 109.96 (mL/min/1.73m2); Glucose 153 mg/dL (74-106); Potassium 3.2 mmol/L (3.5-5.1); Sodium 142 mmol/L (136-145)
[2023-04-04 08:31] VITALS: BP 92/59; PULSE 75; RESP 18; TEMP 36.4; O2SAT 95
[2023-04-04] MEDS: Nystatin CREAM 30 GM TUBE TP ×2 (09:08→20:32)
[2023-04-04] MEDS: Docusate Sodium 100 MG/10 ML CUP PO ×2 (09:08→20:30)
[2023-04-04] MEDS: Enoxaparin 30 MG/0.3 ML SYR SC (10:36)
--- NOTE | 2023-04-04 10:39 | PGE_ITS ---
Date of Service Date of service: 04/04/23 Time of Service: 10:39 Assessment and Plan Assessment and plan (1) COVID-19: Status: Acute Assessment and plan: Initially with oxygen requirements, on RA Continue remdesivir 4 of 4 doses today Continue dexamethasone Stopping IVF, chemistry normal in COVID positive normotensive patient; will reevaluate in AM (2) Bacteremia: Status: Acute Assessment and plan: First blood cultures growing gram-positive cocci_suspicion for MRSA, But results showed MSSA. Zyvox stopped. Cefazolin IV started Blood cultures pending results Procal was negative, no lactate elevation on admit (3) UTI (urinary tract infection): Status: Acute Assessment and plan: Urine growing E. coli , ceftriaxone stopped fosfomycin given UA in am (4) Generalized convulsive epilepsy: Status: Chronic Assessment and plan: Continue home medications,stable Will continue to monitor (5) Cerebral palsy: Status: Chronic Assessment and plan: Remains at baseline, fully dependant on all care and feedings. pureed diet with thickened fluids, coughing reported without hypoxia might be due to COVID infection Speech and swallow eval ordered and completed: Baseline: at risk of aspiration from severe dysphagia from CP,, staff reminded of precautions during feedings as per discussion with speech pathologist discussed with Dr Blake (6) On deep vein thrombosis (DVT) prophylaxis: Status: Acute Assessment and plan: Lovenpx 30 mg Sc q24 Subjective Subjective Patient reports: no new complaints, tolerating liquids well, tolerating a regular diet, voiding w/o difficulty, flatus, no bowel movement and afebrile; denies diarrhea, nausea, vomiting, shortness of breath or fever Exam Narrative Exam Narrative: Constitutional The patient is in bed comfortable without acute distress Neck: no JVD Neuro:alert but unable to assess orient ation, remains non-verbal with poor eye contact d/t history of CB, not following commands. No neurological focal deficit Chest:Chest is symmetrical and thin in appearance Resp: shallow respiratory pattern, speaks in full sentences, unlabored breathing, clear lung bilaterally Cardio: regular rhythm, S1, S2, no murmur, capillary refill<3 sec., GI: Abdomen is rounded, not distended, soft and non tender, bowel sounds are present : no bladder distension Back/spine/Pelvis: No back tenderness Integumentary: No skin lesions or rash Extremities: generalized weakness to bilateral lower and upper extremities Objective Last Vital Signs Temp 36.4 C L 04/04/23 08:31 Pulse 75 04/04/23 08:31 Resp 18 04/04/23 08:31 BP 92/59 L 04/04/23 08:31 Pulse Ox 95 04/04/23 08:31 Laboratory Results - last 24 hr 04/03/23 04/04/23 12:50 08:00 WBC 5.71 7.05 RBC 3.81 L 3.73 L Hgb 13.0 12.6 Hct 36.9 35.6 L MCV 97 H 95 MCH 34.1 H 33.8 H MCHC 35.2 35.4 RDW 12.4 12.0 Plt Count 85 L 107 L MPV 10.8 10.9 Immature Gran % 0.9 1.0 Neutrophils % 67.9 54.3 Lymphocytes % 21.4 34.6 Monocytes % 7.0 9.8 Eosinophils % 2.6 0.0 Basophils % 0.2 0.3 Nucleated RBC % 0.0 0.0 Absolute Neutrophils 3.88 3.83 Absolute Lymphocytes 1.22 2.44 Absolute Monocytes 0.40 0.69 Absolute Eosinophils 0.15 0.00 Absolute Basophils 0.01 0.02 Sodium 143 142 Potassium 4.1 3.2 L Chloride 106 106 Carbon Dioxide 26.5 27.3 Anion Gap 10.5 8.7 BUN 3 L 5 L Creatinine 0.6 0.6 Est GFR (CKD-EPI 2020) 109.96 109.96 Glucose 140 H 153 H Calcium 8.4 L 8.0 L Time Spent with Patient Time Spent with Patient: >50 minutes Time was spent: preparing to see the patient(eg.review tests), obtaining and/or reviewing separately otained hiistory, ordering medications,tests, procedures, referring, communicating with other health medication care manager, indepentently interpreting results, counseling the patient and care coordination
--- NOTE | 2023-04-04 10:40 | SP_ITS ---
Date of service: 04/04/23 Time of Service: 10:41 Subjective Clinical (Bedside) Swallow Evaluation - Inpatient Speech Language Pathology Referred by: Gabriela Aleena Start time: 10:15 End time: 10:40 Total patient contact: 25m Referral Type: Routine Swallow Consult Precautions: Airborne, Full Code Reason for Referral/HPI: Allie is a 47 y/o non-verbal F with cerebral palsy and long history of intractible seizures. She is fully dependent on caregivers for ADL's. She was admitted with COVID-19 and failure to thrive with recent reduced PO intake for several days at home. She was noted by nursing to have some coughing and swallow consult was requested. Initially it seemed as if coughing was associated with PO, but upon further questioning with several members of nursing team who have worked with the patient, as well as ENGINE REPAIR SUPERVISOR, that the cough appeared to be primarily non-prandial, likely related to COVID. Of note her caregivers have also recently reported some difficulty with secretion management, possibly exacerbated by a new medication. Patient was also evaluated by SUPERVISOR TOWER [place] here at [facility] a number of years ago who diagnosed moderate-severe oral-pharyngeal dysphagia and recommended pudding-thick liquids and pureed solids at that time. SUPERVISOR TOWER IMPRESSIONS & RECOMMENDATIONS: SUPERVISOR TOWER evaluation was limited due to patient unable to follow commands and largely refusing to take PO. She refused sips of thickened juice. She did take one bite of pudding, but immediately gagged and did not want to swallow it, and refused all other trials thereafter. Required swabs and suction to clear oral cavity. Patient's baseline diet is already maximally modified at this time, and given this has reportedly been well tolerated when she is willing to take PO, I do not recommend deviation from this diet at this time. Enteral feedings are likely not an option for this patient per hospitalist. Patient is likely to remain at high aspiration risk. Recommend to crush pills when able in puree, or provide thick liquid formulations if needed. FURTHER INPATIENT SUPERVISOR TOWER SERVICES: No further SUPERVISOR TOWER services indicated DISCHARGE RECOMMENDATIONS: Please place outpatient SUPERVISOR TOWER referral if patient's care team feel her swallowing is not at baseline when she recovers from COVID. Diet Recommendations: ? SOLIDS: 4-Pureed Solids LIQUIDS: 3-Moderately Thick Liquids MEDICATIONS: Crushed as able Liquid formulations when able With 4-Purees Alter medications only as advised by MD or Pharmacist RISK MANAGEMENT: Level of Assistance/Supervision: 1:1Assistive feeding only by trained staff/family Positioning and environment: PO intake only when awake/alert? Reduce auditory and/or visual distractions when eating As upright as tolerated, use HOB controls/bed tilt to achieve upright positioning Oral hygiene Q3-4h/every 3-4 hours Before/after PO intake Using suction swab kits on all oral structures as tolerated Strategies/Adaptations/Assistive Equipment: Small sips via tsp Small bites Ensure mouth is clear before proceeding Education Provided to: Nursing Physician Topics Addressed: anatomy/physiology of swallowing mechanism definition and impacts of aspiration impact of current diagnoses on swallow function role of SUPERVISOR TOWER in management of swallow disorders overt s/sx to monitor for re: potential aspiration of food / liquids relationship between respiratory function and deglutition rationale and instruction for additional risk management strategies as above SUBJECTIVE: Patient was repeatedly offered tsp of moderately thick liquids and puree, but frequently refusing. Baseline Swallow Function: Patient unable to report on baseline function, see HPI for previously reported function. OBJECTIVE Patient positioning: As upright as possible using HOB/bed tilt controls Oral care: Reported recently completed Respiratory status: Room air, Tolerates well without s/sx dyspnea, Orientation/Mental status: unable to follow instructions, not verbally responsive. Speech: n/a Oral Mechanism Examination: Dentition: Natural dentition Poor condition Oral mucosa: WFL ? Cranial Nerve Assessment: unable to complete due to inability to follow instructions. Noting open mouth position. No obvious assymetries or focal weakness at rest, but appears with overall reduced strength and ROM of oral structures based on observation of PO intake (c/w diagnosis of CP) PO Intake: Trials Assessed: IDDSI 3 Moderately Thick Liquid - REFUSED IDDSI 4 Puree Solid (pudding x 1/2 tsp) Oral Phase Findings: Poor spoon stripping Anterior leakage from mouth Difficulty with bolus manipulation Difficulty with a-p transport Difficulty chewing Residue Pharyngeal Phase Findings: Absent swallow initiation vs refusal PLAN: No further SUPERVISOR TOWER services indicated at this time. Please re-refer as needed. SUPERVISOR TOWER CPT Code: 50663 Clinical Swallowing Evaluation Coding CPT Codes EVALUATE SWALLOWING FUNCTION - 59449 ([id number]) Additional Codes Date of Service (02239) Date of service: 04/04/23
[2023-04-04] MEDS: Fosfomycin Tromethamine 3 GM PACKET PO (12:06)
--- NOTE | 2023-04-04 12:18 | NUR.NOTE ---
Nursing Note: Confirmed with KNOCKER OUT [place] and pharmacist fosfomycin should be given in water. Per Pharmacist, thickener should be ok to use.
--- NOTE | 2023-04-04 12:45 | NUR.NOTE ---
Nursing Note: Patient was given fosfomycin as directed. Patient spit out some. Estimate at least half was swallowed.
--- NOTE | 2023-04-04 13:30 | DI.US_ITS ---
APPROVED REPORT EXAM: Comprehensive 2D, Doppler, and color-flow Echocardiogram Patient Location: In-Patient Room/Bed: [address] Worker: Angel Lynch RDCS (AE) Indications: bacteremia Conclusion 1. Normal chamber sizes 2. Normal LV function, EF 60-65%. Normal RV function. 3. Normal valves, no significant regurgitation or stenosis. 4. Small to moderate pericardial effusion without hemodynamic compromise. Fibrinous content suggests chronicity. 5. No intracardiac shunt. Wall motion Left Ventricle Left ventricular cavity is small. The left ventricular systolic function is normal. The left ventricu lar ejection fraction is within the normal range. There is normal left ventricular wall thickness. Th ere is normal LV segmental wall motion. There is no ventricular septal defect visualized. LVEF is 63% . Right Ventricle Right ventricle is small. The right ventricular systolic function is normal. Atria The left atrium size is normal. The right atrium size is normal. The interatrial septum is intact wit h no evidence for an atrial septal defect. Aortic Valve The aortic valve is normal in structure. There is no aortic valvular stenosis. No aortic regurgitatio n is present. Mitral Valve Mitral valve leaflets are mildly thickened. No evidence of mitral valve stenosis. There is no mitral valve regurgitation noted. Tricuspid Valve The tricuspid valve is normal in structure. There is no tricuspid valve stenosis. Trace tricuspid reg urgitation. Unable to assess PA pressure. Pulmonic Valve The pulmonary valve is normal in structure. There is no pulmonic valvular stenosis. There is no pulmo kaye valvular regurgitation. Great Vessels The aortic root is normal in size. Ascending aorta is not well visualized. Aortic arch is not well vi sualized. IVC is normal in size and collapses >50% with inspiration. Pericardium Mild circumferential pericardial effusion. 2D Dimensions IVSD d PLAX 0.78 cm F: 0.6-1.0 Ao Root d 2.70 cm F: 2.7 - 3.3 LVPW d PLAX 0.78 cm F: 0.6 - 1.0 LVID d PLAX 2.66 cm F: 3.8 - 5.2 LVDs 1.79 cm F: 2.2 - 3.5 LV EF Teichholz 63.2 % FS 32.72 % LV EDV (Teich) 26.1 mL LV ESV (Teich) 9.6 mL Stroke Vol Index (Teich) 13.65 M-Mode TAPSE 1.88 cm (M/F) >1.7 Auto EF LV EDV A4C 38.0 mL LV EDV A2C 38.4 mL LV EDV BP 38.4 mL LV ESV A4C 14.0 mL LV ESV A2C 14.7 mL LV ESV BP 14.3 mL LVEF(%) A4C 63.1 % LVEF(%) A2C 61.8 % LVEF(%) BP 62.7 % LV SV A4C 24.0 ml LV SV A2C 23.8 ml LV SV BP 24.1 ml LV CO A4C 2.0 L/min LV CO A2C 2.0 L/min LV CO BP 2.0 L/min HR A4C 84.12 BPM HR A2C 84.51 BPM LV EDV Index (BP) LA Volume LA Length A4C 2.4 cm LA Length A2C 2.8 cm LA Area A4C s 3.01 cm2 LA Area A2C s 6.07 cm2 LA Vol A4C A-L 3.16 mL LA Vol A2C A-L 11.10 mL LA Vol Biplane A-L 6.4 mL LA Vol/BSA A4C A-L LA Vol/BSA A2C A-L LA Vol/BSA BP A-L 5.3 mL/m2 LA Vol A4C MOD 3.1 mL LA Vol A2C MOD 9.7 mL LA Vol BP MOD 5.9 mL RA Volume RA Area A4C 5.6 cm2 RA ESV A4C (A-L) 7.7mL RA Vol/BSA A4C A-L RA Length A4C 3.4 cm RA ESV A4C (MOD) 7.2mL LV Diastology MV E' medial 0.104 (>0.07 m/s) MV E Vmax 0.72 (0.4-1.3 m/s) MV E/E' MED 6.90 (<14) MV A Vmax 0.80 (0.4-1.3 m/s) MV E' lateral 0.134 (>0.1 m/s) E/A Ratio 0.9 MV E/E' LAT 5.35 (<14) MV E' Average 0.119 m/s MV E/E'(average) 6.03 Aortic Valve AoV Vmax 1.09 m/s LVOT Vmax 1.08 m/s AoV Peak Grad 4.7 mmHg LVOT Peak Grad 4.7 mmHg AoV Area (Vmax) 1.47 cm2 LVOT VTI 0.221 m AoV VTI 0.219 m LVOT Mean Grad 2.1 mmHg AoV Mean Brennon. 0.78 m/s LVOT SV 32.72 mL AoV Mean Grad 2.7 mmHg LVOT Diam s 1.35 cm AoV Area (VTI) 1.49 cm2 Velocity Ratio 0.99 Mitral Valve MV DT 154 (160-240 msec)
[2023-04-04 15:15] VITALS: BP 146/89; PULSE 85; RESP 14; TEMP 36.6; O2SAT 95
--- NOTE | 2023-04-04 16:08 | PDOC.CMPRO ---
Date of service: 04/04/23 Time of Service: 16:08 Care Management Progress Note Progress Note Text Progress Note Text: S/O: Remains on precautions, caregivers at bedside. Per Hospitalist, anticipate Allie will discharge home tomorrow after her last dose of remdesivir. CM following. A: 47 year old female admitted to [facility] 04/01/23 for COVID-19, dehydration. P: Allie will return home when ready per MD, and resume previous community based supports. She will follow up with her PCP and plan of care as prescribed. She will transport via private vehicle with caregiver, Breana. SDOH(Care Management) Screening Will the Patient Participate in the Screening?: Unable to obtain
[2023-04-04] MEDS: REMDESIVIR 100 MG in Normal Saline 250 ML 250 MG IVPB (17:00)
[2023-04-04] MEDS: ceFAZolin 1 GM/50 ML BAG IVPB (20:31)
[2023-04-04 23:44] VITALS: BP 123/76; PULSE 73; RESP 20; TEMP 36.8; O2SAT 91
[2023-04-05] MEDS: Normal Saline Flush 10 ML SYR IVP (03:28)
[2023-04-05] MEDS: ceFAZolin 1 GM/50 ML BAG IVPB ×2 (03:28→12:44)
[2023-04-05 04:00] LABS: Bilirubin Negative (Negative); Blood Small (Negative); Clarity Clear (Clear); Glucose Negative (Negative); Ketones Negative (Negative); Leukocyte Esterase Negative (Negative); Nitrite Negative (Negative); Urobilinogen 0.2 mg/dL (Up to 0.2)
[2023-04-05 04:07] LABS: Epithelial Cells Negative HPF (Negative); WBC Negative HPF (0-5)
[2023-04-05 04:08] LABS: Bacteria Rare HPF (Negative); C & S Indicated? No; Casts Negative LPF (Negative); Crystals Negative HPF (Negative); Mucus Negative (Negative)
[2023-04-05] MEDS: Docusate Sodium 100 MG/10 ML CUP PO ×2 (08:30→12:45)
[2023-04-05] MEDS: Nystatin CREAM 30 GM TUBE TP ×2 (08:31→21:03)
[2023-04-05 08:33] VITALS: BP 108/76; PULSE 69; RESP 14; TEMP 36.9; O2SAT 98
[2023-04-05] MEDS: Enoxaparin 30 MG/0.3 ML SYR SC (10:26)
--- NOTE | 2023-04-05 14:27 | PGE_ITS ---
Date of Service Date of service: 04/05/23 Time of Service: 14:27 Assessment and Plan Assessment and plan (1) COVID-19: Status: Acute Assessment and plan: Initially with oxygen requirements, on RA Continue remdesivir 4 of 4 doses today Continue dexamethasone at lower dosing (2) Hypokalemia: Status: Resolved Assessment and plan: Replete magnesium level ordered BMP in AM (3) Bacteremia: Status: Acute Assessment and plan: First blood cultures growing gram-positive cocci_suspicion for MRSA, But results showed MSSA. Zyvox stopped. Cefazolin IV started on 04/04 and continued for S. Capitis Repeated Blood cultures on 04/03 negative at 24 hours Procal was negative, no lactate elevation on admit Started on bio-k-plus (4) UTI (urinary tract infection): Status: Acute Assessment and plan: Urine growing E. coli , ceftriaxone stopped fosfomycin given UA in am (5) Generalized convulsive epilepsy: Status: Chronic Assessment and plan: Continue home medications Will continue to monitor No epileptic episode noticed (6) Cerebral palsy: Status: Chronic Assessment and plan: Remains at baseline, fully dependant on all care and feedings. pureed diet with thickened fluids, coughing reported without hypoxia might be due to COVID infection Speech and swallow eval completed:Please see notes Baseline: at risk of aspiration from severe dysphagia from cerebral palsy; aspiration precaution in place (7) On deep vein thrombosis (DVT) prophylaxis: Status: Acute Assessment and plan: Continue Lovenox monitoring platelets (8) Discharge planning issues: Status: Resolved Assessment and plan: Discharge back to prior home environment on oral cephalexin/Keflex (5 days) on 04/[address] Blake (9) Hypernatremia: Status: Acute Assessment and plan: D5W at 50 cc/hr for 10 hours BMP in AM Subjective Subjective Interval history since last seen: Patient appears to feel better, positive eye contact, smiling, moving her head out of range, less lethargic. Patient is drinking well, tolerating food better when fed by caregiver; decreased coughing. No reports of fever, acute distress, nausea, vomiting or diarrhea, hematuria. Bowel movement reported today as the first 1 since the admission. Exam Narrative Exam Narrative: Constitutional The patient is in bed comfortable without acute distress Neuro:alert but unable to assess orientation, nonverbal at baseline with total care Resp: clear lung bilaterally with diminished lower lobes Cardio: regular rhythm, S1, S2 GI: Abdomen not distended, soft and non tender, bowel sounds are present Back/spine/Pelvis: No back tenderness Integumentary: No skin lesions or rash Objective Last Vital Signs Temp 36.9 C 04/05/23 08:33 Pulse 69 04/05/23 08:33 Resp 14 04/05/23 08:33 BP 108/76 04/05/23 08:33 Pulse Ox 98 04/05/23 08:33 Laboratory Results - last 24 hr 04/04/23 04/05/23 00:16 03:35 Urine Color Cancelled Yellow Urine Clarity Cancelled Clear Urine pH Cancelled 7.0 Ur Specific [place] Cancelled 1.020 Urine Protein Cancelled Negative Urine Ketones Cancelled Negative Urine Blood Cancelled Small H Urine Nitrite Cancelled Negative Urine Bilirubin Cancelled Negative Urine Urobilinogen Cancelled 0.2 Ur Leukocyte Esterase Cancelled Negative Urine RBC 5-10 H Urine WBC Negative Ur Epithelial Cells Negative Urine Crystals Negative Urine Bacteria Rare Urine Casts Negative Urine Mucus Negative Ur Culture Indicated? No Urine Glucose Cancelled Negative Time Spent with Patient Time Spent with Patient: >50 minutes Time was spent: preparing to see the patient(eg.review tests), obtaining and/or reviewing separately otained hiistory, ordering medications,tests, procedures, referring, communicating with other health respite care provider, indepentently interpreting results, counseling the patient and care coordination
[2023-04-05 14:30] VITALS: BP 89/54; PULSE 80; RESP 16; TEMP 36.9; O2SAT 90
[2023-04-05 14:31] VITALS: BP 118/68
[2023-04-05 14:57] LABS: Abs Immature Grans 0.08 10^3/uL (0.0-0.06); Absolute Basophil Count 0.03 10^3/uL (0.0-0.2); Absolute Lymphocyte Count 0.99 10^3/uL (1.2-3.4); Absolute Monocyte Count 0.44 10^3/uL (0.1-0.8); Absolute Neutrophil Count 4.81 10^3/uL (1.2-6.7); Basophils % 0.5; HCT 37.5 % (36.0-46.0); HGB 13.2 g/dL (11.2-15.7); Immature Grans % 1.3; Lymphocytes % 15.6; MCH 33.8 pg (27.0-33.0); MCHC 35.2 % (32.0-36.0); MCV 96 fL (80-95); MPV 10.6 fL (8.0-11.0); Monocytes % 6.9; Neutrophils % 75.7; Platelet Count 133 10^3/uL (130-400); RBC 3.91 10^6/uL (3.93-5.22); RDW 12.4 % (11.7-14.6); RDW-SD 43.6 fL; WBC 6.35 10^3/uL (4.4-10.8)
[2023-04-05 15:05] LABS: Anion Gap 12.3 mmol/L (3-11); BUN 8 mg/dL (7-18); CO2 26.7 mmol/L (21.0-32.0); CREATININE 0.7 mg/dL (0.55-1.02); Calcium 8.1 mg/dL (8.5-10.1); Chloride 109 mmol/L (98-107); Estimated GFR 105.95 (mL/min/1.73m2); Glucose 106 mg/dL (74-106); Magnesium 1.8 mg/dL (1.8-2.4); Potassium 3.6 mmol/L (3.5-5.1); Sodium 148 mmol/L (136-145)
[2023-04-05] MEDS: POTASSIUM CHLORIDE 20 MEQ/100 ML BAG 50 MEQ IVPB (15:13)
[2023-04-05] MEDS: REMDESIVIR 100 MG in Normal Saline 250 ML 250 MG IVPB (17:02)
[2023-04-05 21:00] VITALS: BP 118/71; PULSE 80; RESP 20; TEMP 37.3; O2SAT 93
[2023-04-05] MEDS: Cephalexin 500 MG CAP PO (23:40)
[2023-04-06 07:30] LABS: Absolute Basophil Count 0.03 10^3/uL (0.0-0.2); Absolute Eosinophil Count 0.03 10^3/uL (0.0-0.7); Absolute Lymphocyte Count 3.15 10^3/uL (1.2-3.4); Absolute Monocyte Count 0.83 10^3/uL (0.1-0.8); Absolute Neutrophil Count 2.14 10^3/uL (1.2-6.7); Basophils % 0.5; Eosinophils % 0.5; HCT 34.7 % (36.0-46.0); HGB 11.7 g/dL (11.2-15.7); Immature Grans % 1.6; Lymphocytes % 50.2; MCH 33.1 pg (27.0-33.0); MCHC 33.7 % (32.0-36.0); MCV 98 fL (80-95); MPV 10.6 fL (8.0-11.0); Monocytes % 13.2; Platelet Count 136 10^3/uL (130-400); RBC 3.53 10^6/uL (3.93-5.22); RDW 12.7 % (11.7-14.6); RDW-SD 45.9 fL; WBC 6.28 10^3/uL (4.4-10.8)
[2023-04-06 07:37] LABS: Anion Gap 9.7 mmol/L (3-11); BUN 12 mg/dL (7-18); CO2 25.3 mmol/L (21.0-32.0); CREATININE 0.5 mg/dL (0.55-1.02); Calcium 8.2 mg/dL (8.5-10.1); Chloride 113 mmol/L (98-107); Glucose 92 mg/dL (74-106); Potassium 3.9 mmol/L (3.5-5.1); Sodium 148 mmol/L (136-145)
[2023-04-06 08:15] VITALS: BP 112/71; PULSE 71; RESP 14; TEMP 36.4; O2SAT 96
[2023-04-06] MEDS: Cephalexin 500 MG CAP PO ×2 (08:33→12:23)
[2023-04-06] MEDS: Docusate Sodium 100 MG/10 ML CUP PO (08:34)
[2023-04-06] MEDS: Nystatin CREAM 30 GM TUBE TP (08:49)
[2023-04-06] MEDS: Enoxaparin 30 MG/0.3 ML SYR SC (10:29)
--- NOTE | 2023-04-06 14:22 | DSE_ITS ---
Date of service: 04/06/23 Time of Service: 14:23 DS: Diagnosis Discharge Diagnosis (1) COVID-19: Status: Acute (2) Bacteremia: Status: Acute (3) UTI (urinary tract infection): Status: Acute (4) Generalized convulsive epilepsy: Status: Chronic (5) Cerebral palsy: Status: Chronic (6) Hypernatremia: Status: Acute Discharge Plan Disposition Patient Disposition: Home Condition: Improving Discharge Details Reason For Visit: covid 19, dehydration Admit Date/Time: 04/01/23 16:10 Admit Provider: Sravanthi Scott Attending Provider: Sravanthi Scott Primary Care Provider: Paula Lorenzo [facility] Course Hospital Course: This 47 years old female patient who is wheelchair-bound aphasic with severe cerebral palsy requiring 24/7 care following traumatic brain injury with a past history of epilepsy seen by neurology presented to the ED at [facility] via EMS on 04/01/2023 for evaluation failure to thrive in the setting of recent diagnostic of COVID-19. The caregiver reported at the time that she had poor p.o. intake and had not voided since 03/31/2023. In the ED the patient was found to be hypoxic with oxygen requirement of 2 L via nasal cannula to maintain sats in the mid 90s. She also the patient also received IV fluid bolus and was able to void. Her urine was positive for urinary tract infection and she was started on ceftriaxone while awaiting sensitivities . The hospitalist was consulted and the patient was admitted to the medical surgical floor as an inpatient for IV hydration, urinary tract infection, and COVID-19 necessitating oxygen supplementation. During the stay, the patient finished a course of remdesivir IV and no longer had oxygen requirement, the urinary tract infection was initially treated with with ceftriaxone then fosfomycin 3 g oral one-time dose was given as the urine was positive for E. Coli solely. Blood culture grew methicillin sensitive Staphylococcus, and IV Zyvox was switched to IV cefazolin. The patient will be discharged home on oral Keflex to complete a total of 10 days of antibiotic therapy after the first negative blood culture dated from 04/03/2023. The patient will also continue probiotic therapy while on antibiotics. Speech consult was initiated and recommendations were to maintain aspiration precautions. Hypokalemia was treated with the potassium replacement. Hypernatremia was treated with D5W. Follow-up CBC and BMP ordered for 04/10/2023 with critical results to be communicated to primary care provider. The patient will need to follow-up with her primary care practitioner within 1 to [address] Blake Home Meds and New Rx's Prescriptions: New Lactobacillus acidoph-L.bulgar [Floranex] 100 million cell Granules In Packet 1 packet PO DAILY Qty: 15 0RF cephalexin 500 mg Capsule 500 mg PO TID Qty: 22 0RF Continued clobazam 10 mg tablet 5 mg PO QHS Qty: 45 3RF nystatin 100,000 unit/gram cream 1 applic topical BID Qty: 30 0RF divalproex 125 mg tablet,delayed release (/EC) See Rx Instructions PO BID Qty: 330 8RF Rx Instructions: 5tab in AM; 6 tab in PM PO twice a day; bisacodyl [Dulcolax (bisacodyl)] 10 mg suppository 10 mg [place] DAILY Qty: 90 5RF Diafoods Thick-It #2 Powder See Rx Instructions PO AC Qty: 850 12RF Rx Instructions: 1 dose orally before meals; carbamazepine 100 mg tablet,chewable See Rx Instructions PO TID Qty: 180 12RF Rx Instructions: 2 tabs in AM; 1 tab noon; 3 tabs in PM Discontinued molnupiravir 200 mg capsule 800 mg PO Q12H 5 Days Qty: 40 0RF Discharge Instructions Referrals: Paula Lorenzo MD, [place] [Primary Care Provider] - (Call provider for follow up within a week, please) Activity:: Activity as Tolerated Equipment/Supplies:: W/C Diet:: as prior to admission, increase oral hydration while on antibiotics Discharge Orders Discharge Orders: Discharge Order (Routine); Ordered 04/06/23 Ordered By: Gabriela Flood Other Ambulatory Orders: Basic Metabolic Panel (Routine) Timeframe: 20230410 Facility: [facility] - Location: Laboratory Outpatient - [facility] Ordered By: Gabriela Flood Complete Blood Count w/Diff (Routine) Timeframe: 20230410 Facility: [facility] - Location: Laboratory Outpatient - [facility] Ordered By: Gabriela Flood DS: Summary Time Spent with Patient providing and/or coordinating discharge services: Greater than 30 minutes Status at Discharge Functional status at discharge: wheelchair bound Overall status at discharge: patient is progressing back to baseline Mental Status: other (PMH of TBI, cerebral palsy and back to baseline) Speech and Movement: other (aphasic) Mood: other (PMH of TBI, cerebral palsy and back to baseline) Affect: other (baseline) Quality:SDOH Health Related Social Needs: No Data to Display Exam Narrative Exam Narrative: Constitutional Neuro:alert but unable to assess orientation, better eye contact today, nonverbal at baseline with total care Resp: clear lung bilaterally with diminished lower lobes Cardio: regular rhythm and rate, S1, S2, no murmur GI: Abdomen not distended, soft and non tender, bowel sounds are present Back/spine/Pelvis: No back tenderness Integumentary: No skin lesions or rash Psych Mental Status: other (PMH of TBI, cerebral palsy and back to baseline) Speech and Movement: other (aphasic) Mood: other (PMH of TBI, cerebral palsy and back to baseline) Affect: other (baseline) DS: Data Vitals/I&O Vitals and I&O: Vital Signs Temperature 36.4 C L 04/06/23 08:15 Temperature Source Tympanic 04/06/23 08:15 Pulse 71 04/06/23 08:15 Pulse Rhythm Regular 04/06/23 08:30 Respiratory Rate 14 04/06/23 08:15 Respiratory Effort Normal, Non-Labored 04/06/23 08:30 Respiratory Depth Normal 04/06/23 08:30 Respiratory Pattern Normal 04/06/23 08:30 Blood Pressure 112/71 04/06/23 08:15 Blood Pressure Mean 97 04/01/23 18:00 Pulse Oximetry 96 04/06/23 08:15 Oxygen Delivery Method Room Air 04/06/23 08:15 Oxygen Flow Rate 0 04/06/23 08:15 Pain Level 0 04/04/23 10:30 Comment RN informed of bp 04/05/23 14:30 Intake & Output 04/05/23 04/06/23 04/06/23 23:59 11:59 23:59 Intake Total 400 / 450 Output Total 0 / 0 Balance 400 / 420 0 / 0 Intake: IV 400 / 450 Output: Urine 0 / 0 Other: Urine Color Yellow Urine Appearance Clear Comment brief dry at this time Stool Size Small Stool Characteristics Soft Brown Voiding Methods Diaper Diaper Diaper Incontinent Incontinent Data Completed and Pending Labs on day of discharge: Labs from last 24 hours 04/06/23 04/05/23 07:00 14:43 WBC 6.28 6.35 RBC 3.53 L 3.91 L Hgb 11.7 13.2 Hct 34.7 L 37.5 MCV 98 H 96 H MCH 33.1 H 33.8 H MCHC 33.7 35.2 RDW 12.7 12.4 Plt Count 136 133 MPV 10.6 10.6 Immature Gran % 1.6 1.3 Neutrophils % 34.0 75.7 Lymphocytes % 50.2 15.6 Monocytes % 13.2 6.9 Eosinophils % 0.5 0.0 Basophils % 0.5 0.5 Nucleated RBC % 0.0 0.0 Absolute Neutrophils 2.14 4.81 Absolute Lymphocytes 3.15 0.99 L Absolute Monocytes 0.83 H 0.44 Absolute Eosinophils 0.03 0.00 Absolute Basophils 0.03 0.03 Sodium 148 H 148 H Potassium 3.9 3.6 Chloride 113 H 109 H Carbon Dioxide 25.3 26.7 Anion Gap 9.7 12.3 H BUN 12 8 Creatinine 0.5 L 0.7 Est GFR (CKD-EPI 2020) 114.90 105.95 Glucose 92 106 Calcium 8.2 L 8.1 L Magnesium 1.8 Preliminary micro results at discharge 04/03/23 18:40 Blood Culture - Preliminary Blood NO GROWTH 48 HOURS 04/03/23 18:48 Blood Culture - Preliminary Blood NO GROWTH 48 HOURS 04/02/23 18:00 Blood Culture - Preliminary Blood NO GROWTH 72 HOURS 04/01/23 12:00 Blood Culture - Preliminary Blood NO GROWTH 96 HOURS PFS All Active Problems (Updated 04/05/23 @ 18:24 by Gabriela Flood APRN) Hypernatremia (Acute) On deep vein thrombosis (DVT) prophylaxis (Acute) Bacteremia (Acute) UTI (urinary tract infection) (Acute) COVID-19 (Acute) COVID-19 (Acute ~03/30/23) Intractable epilepsy (Acute) Chalazion of right eyelid (Acute) Eyelid abnormality (Acute) Seizure (Acute) 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 Patient followed at [facility]. Onychomycosis (Chronic) Hearing loss (Chronic) Generalized convulsive epilepsy (Chronic) Cerebral palsy (Chronic) Acne (Chronic) Macrocytic anemia (Chronic) Family History Mother No problems noted. Father No problems noted. Grandfather No problems noted. Grandmother No problems noted. Social History Smoking/Tobacco Use Status: Never Smoking risk assessment performed?: Yes Alcohol Intake: never Drug use: Never Substance use type: does not use Housing: other Do you feel safe in your relationship?: Yes Time Spent with Patient Time Spent with Patient: >85 minutes Time was spent: preparing to see the patient(eg.review tests), obtaining and/or reviewing separately otained hiistory, ordering medications,tests, procedures, referring, communicating with other health patient care assistant, indepentently interpreting results, counseling the patient and care coordination
[2023-04-06] MEDS: DEXTROSE 5%-WATER 500 ML IV (15:03)
--- NOTE | 2023-04-06 15:13 | PDOC.CMDIS ---
Date of service: 04/06/23 Time of Service: 15:13 LACE Index Scoring Tool Questions: Length of Stay (in days): 4 - 6 Was the patient admitted via the E.D.?: Yes E.D. Visits: 1 Answers: Total Score: 8 Risk of Readmission: Low Risk Care Management Discharge Plan Reason for Hospitalization: COVID-19, dehydration Discharge Plan: Allie will be discharged home with a resumption of her caregiver services. She will follow up with her community providers and plan of care and transport with her caregiver. Patient/Family Education Needs: Review discharge instructions, limitations, precautions, follow up plan, discuss Ask Me Three. SDOH Health Related Social Needs: No Data to Display
[2023-04-06 16:54] LABS: Sodium 144 mmol/L (136-145)
== END 2023-04-06 17:44 | disposition home or self-care (01) | DRG 178 ==
LOC: ER 16:55 → MS 18:38
PROVIDERS: Nurse Practitioner Acute Care; Admitting Provider Internal Medicine; Emergency Provider Physician Assistant; PCP Family Medicine; Visit Provider Internal Medicine
DX: U07.1 COVID-19 (principal); E87.0 Hyperosmolality and hypernatremia; N39.0 Urinary tract infection, site not specified; R47.01 Aphasia; R78.81 Bacteremia; R64 Cachexia; Z68.1 Body mass index [BMI] 19.9 or less, adult; G40.309 Generalized idiopathic epilepsy and epileptic syndromes, not intractable, without status epilepticus; G80.9 Cerebral palsy, unspecified; R09.02 Hypoxemia; Z99.3 Dependence on wheelchair; E55.9 Vitamin D deficiency, unspecified; H53.9 Unspecified visual disturbance; D53.9 Nutritional anemia, unspecified; B96.20 Unspecified Escherichia coli [E. coli] as the cause of diseases classified elsewhere; R13.10 Dysphagia, unspecified; E87.6 Hypokalemia; E86.0 Dehydration; B95.61 Methicillin susceptible Staphylococcus aureus infection as the cause of diseases classified elsewhere
CPT/HCPCS: 00123; 36410; 36415; 80048; 80053; 82550; 82805; 83690; 84145; 85652; 87040; 87077; 87637; 92610; 93005; 96361; 96365; 96367; 96375; 99285; 71045; 81003; 81015; 83605; 83735; 83880; 84295; 84484; 85025; 85379; 87086; 87186; 93010; 93306; 99222; 99233; 99239; J0131; J0248; J0690; J0696; J1650; J1885; J2020; J3480; J3490; J8540; P9047

== ENCOUNTER 2023-04-22 03:43 | Outpatient (CLI) | payer MEDICARE, MEDICAID, SELFPAY ==
[2023-04-22 13:42] LABS: Abs Immature Grans 0.02 10^3/uL (0.0-0.06); Absolute Basophil Count 0.05 10^3/uL (0.0-0.2); Absolute Eosinophil Count 0.04 10^3/uL (0.0-0.7); Absolute Lymphocyte Count 1.74 10^3/uL (1.2-3.4); Absolute Monocyte Count 0.66 10^3/uL (0.1-0.8); Absolute Neutrophil Count 3.27 10^3/uL (1.2-6.7); Basophils % 0.9; Eosinophils % 0.7; HCT 37.2 % (36.0-46.0); HGB 12.8 g/dL (11.2-15.7); Immature Grans % 0.3; Lymphocytes % 30.1; MCH 33.8 pg (27.0-33.0); MCHC 34.4 % (32.0-36.0); MCV 98 fL (80-95); MPV 10.9 fL (8.0-11.0); Monocytes % 11.4; Neutrophils % 56.6; Platelet Count 145 10^3/uL (130-400); RBC 3.79 10^6/uL (3.93-5.22); RDW 12.4 % (11.7-14.6); RDW-SD 44.8 fL; WBC 5.78 10^3/uL (4.4-10.8)
[2023-04-22 15:14] LABS: Anion Gap 8.1 mmol/L (3-11); BUN 16 mg/dL (7-18); CO2 26.9 mmol/L (21.0-32.0); CREATININE 0.4 mg/dL (0.55-1.02); Calcium 8.6 mg/dL (8.5-10.1); Chloride 107 mmol/L (98-107); Estimated GFR 121.25 (mL/min/1.73m2); Glucose 118 mg/dL (74-106); Potassium 4.1 mmol/L (3.5-5.1); Sodium 142 mmol/L (136-145)
[2023-04-22 15:21] LABS: TROPONIN-I 14.7 ug/mL (4.0-12.0); VALPROIC ACID 110.4 ug/mL
[2023-04-22 15:29] LABS: TSH (W/Ref FT4) 2.19 uIU/mL (0.36-3.74)
[2023-04-22 15:42] LABS: Vitamin D 25 Total 13.3 ng/mL (30-100)
== END 2023-04-22 03:44 | disposition home or self-care (01) ==
LOC: LBO 03:43
PROVIDERS: Nurse Practitioner Acute Care; PCP Family Medicine; Visit Provider Family Medicine
DX: I10 Essential (primary) hypertension (principal); E55.9 Vitamin D deficiency, unspecified; E87.0 Hyperosmolality and hypernatremia; G40.919 Epilepsy, unspecified, intractable, without status epilepticus; Z51.81 Encounter for therapeutic drug level monitoring; Z79.899 Other long term (current) drug therapy
CPT/HCPCS: 36415; 80048; 82306; 80156; 80164; 84443; 85025

== ENCOUNTER 2023-06-18 10:33 | Emergency (ER) | payer MEDICARE, MEDICAID, SELFPAY ==
--- NOTE | 2023-06-18 10:35 | ED.GENADUL_ITS ---
Discharge Plan Disposition Patient Disposition: Home Discharge Details Clinical Impression: Pneumonia involving left lung Primary Care Provider: Paula Lorenzo ED Provider: Fredrick Rosado Home Meds and New Rx's Prescriptions: Continued bisacodyl [Dulcolax (bisacodyl)] 10 mg suppository 10 mg [place] DAILY Qty: 90 5RF [employer] Thick-It #2 Powder See Rx Instructions PO AC Qty: 850 12RF Rx Instructions: 1 dose orally before meals; carbamazepine 100 mg tablet,chewable See Rx Instructions PO TID Qty: 180 12RF Rx Instructions: 2 tabs in AM; 1 tab noon; 3 tabs in PM ergocalciferol (vitamin D2) 1,250 mcg (50,000 unit) capsule 50,000 unit PO QWEEK Qty: 13 4RF divalproex 125 mg tablet,delayed release (DR/EC) See Rx Instructions PO BID Qty: 330 8RF Rx Instructions: 5tab in AM; 6 tab in PM PO twice a day; ciprofloxacin HCl 250 mg tablet 250 mg PO BID Qty: 14 0RF clobazam 10 mg tablet 5 mg PO QHS Qty: 45 3RF Discharge Instructions Instructions: Pneumonia (ED) Additional Instructions: You were seen in the emergency department for your poor intake. Your blood work shows that you are not dehydrated. Your CAT scan shows that you have a pneumonia. Please continue taking your antibiotics as previously prescribed. Please follow-up with your primary care provider next week. Please return to the emergency department if you develop fevers do not urinate at least once every 8 hours while awake or if you develop any vomiting. HPI General Date/Time Provider Initiated Documentation: 06/18/23 10:34 . HPI Narrative: [facility] This is a chronically ill-appearing afebrile and not tachycardic 48-year-old total care nonverbal female with decreased urine output in the setting of outpatient treatment for UTI concerns and possibility of sepsis. I tested her for C. difficile as she has had diarrhea and is on outpatient antibiotics but she has not had any fevers. Patient has had her antiseizure medications today. I am also concerned for possibility of aspiration however she is not hypoxic nor in extremis so we will obtain chest x-ray. Will draw blood cultures lactate and treat empirically with ceftriaxone and vancomycin. No pain out of proportion to suggest necrotizing soft tissue infection. Soft nontender abdomen so I am not concerned for appendicitis based on no right lower quadrant tenderness. No left lower quadrant tenderness to suggest diverticulitis. Will plan on obtaining straight cath urinalysis to assess for UTI. Given the patient is on antiseizure medications if she is not able to tolerate p.o. I feel that she will likely benefit from hospitalization as I am concerned about her ability to take antiseizure medications. Not vomiting to suggest increased risk for intracranial hemorrhage. No pain out of proportion to suggest necrotizing soft tissue infection. No chest pain to suggest ACS. 11:56 AM CBC shows leukocytosis. No anemia. No thrombocytopenia. Leukocytosis new compared to prior. Reassuring normal lactate. 12:31 PM Per laboratory, chest not performed on stool sample for C. difficile given formed stool. 2 PM Basic metabolic panel with no VENITA. No acute electrolyte abnormalities. 2:10 PM Urinalysis showing trace leuk esterase. Nitrite and hematuria negative. Microscopy showing rare bacteriuria. Sample reflexed to culture. 3:35 PM Patient was found to have a small pericardial effusion on CT scan is 1.2 cm. In reviewing her echocardiogram from earlier this year she was noted to have a mild circumferential pericardial effusion. I do not feel that she requires hospitalization for repeat echocardiogram as I am not suspicious for tamponade as she is having no shortness of breath no tachycardia nor hypotension. CT scan read as showing subpleural infiltrate in left lower lobe. Patient still has 4 days remaining of her ciprofloxacin. Will complete a p.o. challenge in the ED. given that she is taking p.o. and able to take her antiseizure medicines I do not feel that she requires hospitalization. I met with the patient's mother and care provider and they agreed. Given the patient is not acutely dehydrated and not hypoxic I do not feel that she requires hospitalization. She does have an elevated port score secondary to her altered mental status at baseline and her history of needing total care though she is technically not in a snf. She is not febrile nor hypotensive nor tachypneic nor tachycardic. Her BUN is normal. She is not hyponatremic. If she is able to pass p.o. challenge well discharged with primary care follow-up. We discussed return indications for less than 1 episode of urination every 8 hours while awake any fevers or vomiting or any other concerns. Care provider and mother understood return indications and patient was discharged with an empiric trial of expectant outpatient management. Chronic conditions affecting the care of the patient: Total care nonverbal History obtained from an outside historian: Patient's care provider External record review: [facility] [place] [Diagnostic interpretations performed by me: Per my independent interpretation chest x-ray shows: No acute cardiopulmonary process Medications: Vancomycin ceftriaxone Social determinants of health affecting disposition: N/A Management discussed with: Radiology Treatment/interventions considered: Hospitalization but deferred Response to therapies provided: No vomiting in the ED HPI This is a 56-year-old female with a history of cerebral palsy wheelchair-bound and noncommunicative arrived to the emergency department via private vehicle in setting of decreased p.o. for the past 2 days. Patient has been urinating less than normal and only urinated to small amounts this morning. She is on outpatient antibiotics for urinary tract infection and has been having multiple episodes of diarrhea for the past several days. Her diarrhea is dark zuñiga. She has been having reflux after eating and has been taking markedly less p.o. per her care providers at home. No recent changes in medications beyond antibiotics. No fevers. No chest pain. No cough. Unable to obtain additional history secondary to the patient's nonverbal status. Exam General: Chronically ill-appearing. Small stature. Thin extremities. Eyes initially closed. Head: Normocephalic, atraumatic. Eye: Extraocular eye movements intact. No conjunctival injection. No scleral icterus. Ear, nose, mouth, throat: Grossly normal inspection. Moist mucous membranes. Handling secretions. Neck: Trachea midline. Cardiovascular: Well-perfused distal extremities. Regular rate and rhythm. Respiratory: Nonlabored respiration. Decreased breath sounds bilateral bases. Gastrointestinal: Nondistended abdomen. Soft nontender. No rebound. No guarding. Musculoskeletal: No lower extremity pitting edema. Skin: Normal for age and race, grossly normal temperature and turgor. No acute rash. Neurologic: Eyes open. Nonverbal. Does not participate in neurological assessment. Related Data Home Medications Medication Instructions Recorded Confirmed bisacodyl 10 mg rectal suppository 10 mg TN DAILY #90 supp 03/17/23 06/18/23 (Dulcolax (bisacodyl)) starch (thickening) ([employer]iafoods See Rx Instructions PO AC #850 03/26/23 06/18/23 Thick-It #2 oral powder) grams carbamazepine 100 mg chewable See Rx Instructions PO TID #180 03/31/23 06/18/23 tablet tabs ergocalciferol (vitamin D2) 1,250 50,000 unit PO QWEEK #13 caps 04/24/23 06/18/23 mcg (50,000 unit) capsule divalproex 125 mg tablet,delayed See Rx Instructions PO BID #330 06/11/23 06/18/23 release tab-caps ciprofloxacin HCl 250 mg tablet 250 mg PO BID #14 tabs 06/13/23 06/18/23 clobazam 10 mg tablet 5 mg (1/2 x 10 mg) PO QHS #45 tabs 06/18/23 Previous Rx's Medication Instructions Recorded bisacodyl 10 mg rectal suppository 10 mg TN DAILY #90 supp 03/17/23 (Dulcolax (bisacodyl)) starch (thickening) ([employer]iafoods See Rx Instructions PO AC #850 03/26/23 Thick-It #2 oral powder) grams carbamazepine 100 mg chewable See Rx Instructions PO TID #180 03/31/23 tablet tabs ergocalciferol (vitamin D2) 1,250 50,000 unit PO QWEEK #13 caps 04/24/23 mcg (50,000 unit) capsule divalproex 125 mg tablet,delayed See Rx Instructions PO BID #330 06/11/23 release tab-caps ciprofloxacin HCl 250 mg tablet 250 mg PO BID #14 tabs 06/13/23 clobazam 10 mg tablet 5 mg (1/2 x 10 mg) PO QHS #45 tabs 06/18/23 Allergies Allergy/AdvReac Type Severity Reaction Status Date / Time sulfamethoxazole AdvReac Intermediate NAUSEA, Verified 06/18/23 12:45 [From Bactrim] VOMITING trimethoprim [From Bactrim] AdvReac Intermediate NAUSEA, Verified 06/18/23 12:45 VOMITING General TYE: 3 Medical Decision Making Quality:SDOH Health Related Social Needs: No Data to Display PFSH All Active Problems (Updated 06/18/23 @ 16:52 by Fredrick Rosado MD) Pneumonia involving left lung (Acute) Hypernatremia (Acute) Bacteremia (Acute) Intractable epilepsy (Acute) Chalazion of right eyelid (Acute) Eyelid abnormality (Acute) Seizure (Acute) 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 Patient followed [place] [facility] Onychomycosis (Chronic) Hearing loss (Chronic) Generalized convulsive epilepsy (Chronic) Cerebral palsy (Chronic) Acne (Chronic) Macrocytic anemia (Chronic) Medical History (Updated 06/18/23 @ 16:52 by Fredrick Rosado MD) UTI (urinary tract infection) Family History Mother No problems noted. Father No problems noted. Grandfather No problems noted. Grandmother No problems noted. Social History Smoking/Tobacco Use Status: Never Smoking risk assessment performed?: Yes Alcohol Intake: never Drug use: Never Substance use type: does not use Housing: other Do you feel safe at home: Yes (KRISHAN) Do you feel safe in your relationship?: Yes
[2023-06-18 10:46] VITALS: BP 113/53; PULSE 62; RESP 16; TEMP 36.3; O2SAT 95
--- NOTE | 2023-06-18 11:15 | DI.RAD_ITS ---
Exam(s) XR PORTABLE CHEST AP EXAM: XR PORTABLE CHEST AP CLINICAL HISTORY: Dysphagia. TECHNIQUE: 2D digital imaging was performed. COMPARISON: CR XR PORTABLE CHEST AP from 04/01/2023 FINDINGS: Single AP portable view. Heart size is upper normal. The mediastinum is not widened. Lungs are clear. No infiltrates nor obvious pleural effusions. The previously present infiltrate in the left lower lobe is no longer seen. IMPRESSION: No acute pulmonary findings on this single AP portable view of the chest. DATA REPOSITORY: RADIATION DOSE DELIVERED:
[2023-06-18 11:52] LABS: Lactate 1.1 mmol/L (0.6-1.4)
[2023-06-18 11:53] LABS: Abs Immature Grans 0.04 10^3/uL (0.0-0.06); Absolute Basophil Count 0.04 10^3/uL (0.0-0.2); Absolute Eosinophil Count 0.11 10^3/uL (0.0-0.7); Absolute Lymphocyte Count 2.74 10^3/uL (1.2-3.4); Absolute Monocyte Count 0.96 10^3/uL (0.1-0.8); Basophils % 0.4; HCT 38.2 % (36.0-46.0); Immature Grans % 0.4; Lymphocytes % 24.6; MCH 34.9 pg (27.0-33.0); MCV 102 fL (80-95); MPV 10.7 fL (8.0-11.0); Monocytes % 8.6; Platelet Count 142 10^3/uL (130-400); RBC 3.73 10^6/uL (3.93-5.22); RDW 12.3 % (11.7-14.6); RDW-SD 45.8 fL; WBC 11.15 10^3/uL (4.4-10.8)
[2023-06-18 11:54] LABS: Absolute Neutrophil Count 7.25 10^3/uL (1.2-6.7)
[2023-06-18] MEDS: Normal Saline 500 ML 250 ML IV (12:34)
[2023-06-18] MEDS: cefTRIAXone 1 GM/50 ML BAG IVPB (12:34)
[2023-06-18 12:40] VITALS: BP 132/75; PULSE 116
--- NOTE | 2023-06-18 12:43 | NUR.NOTE ---
Pt unable to stay still for BP reading. Taken on right thigh with result of 132/75Nursing Note:
--- NOTE | 2023-06-18 13:15 | DI.CT_ITS ---
Exam(s) CT CHEST WO EXAM: CT CHEST WO CLINICAL HISTORY: Dysphagia. TECHNIQUE: Multi planar reconstructions were performed. CONTRAST MATERIAL: None COMPARISON: CR XR PORTABLE CHEST AP from 06/18/2023 FINDINGS: CHEST: There is motion artifact on all images. LUNGS: There are no confluent infiltrates nor pleural effusions in the right lung. Mild pleural incr eased markings noted in the lateral and posterior basal segments of the left lower lobe, not associat ed with pleural effusion. No findings in the trachea and mainstem bronchi. No bronchiectasis. MEDIASTINUM: There is no obvious hilar nor mediastinal adenopathy. CARDIAC: Heart size normal. However, there is a pericardial effusion with maximum thickness 1.2 cm.C aliber of the thoracic aorta is within normal limits. VISUALIZED UPPER ABDOMEN: OSSEOUS: Scoliosis. No acute fractures evident. No significant osseous lesions.. IMPRESSION: 1. There is subpleural infiltrate in the left lower lobe involving the lateral and posterior basal se gments. There are no pleural effusions. 2. There is a pericardial effusion did evident with maximum thickness 1.2 cm (12mm)_ Called by myself to ER physician. RADIATION DOSE DELIVERED: Total DLP DATA REPOSITORY: All CT scans at this facility are submitted to the National Radiology Data Registry (NRDR) Dose Index Registry (DIR) with the [employer] ([employer]). RADIATION OPTIMIZATION: All CT scans at this facility use at least one of these dose optimization te chniques: automated exposure control; mA and/or kV adjustment per patient size (includes targeted exa ms where dose is matched to clinical indication); or iterative reconstruction.
[2023-06-18] MEDS: VANCOMYCIN/WATER (PEG) 750 MG/150 ML BAG 150 MG IVPB (13:23)
[2023-06-18 13:48] LABS: Bilirubin Negative (Negative); Blood Negative (Negative); Clarity Clear (Clear); Glucose Negative (Negative); Ketones Negative (Negative); Leukocyte Esterase Trace (Negative); Nitrite Negative (Negative); Urobilinogen 0.2 mg/dL (Up to 0.2)
[2023-06-18 13:58] LABS: Anion Gap 7.5 mmol/L (3-11); BUN 14 mg/dL (7-18); CO2 29.5 mmol/L (21.0-32.0); CREATININE 0.4 mg/dL (0.55-1.02); Calcium 8.5 mg/dL (8.5-10.1); Chloride 108 mmol/L (98-107); Glucose 80 mg/dL (74-106); Sodium 145 mmol/L (136-145)
[2023-06-18 14:05] LABS: Epithelial Cells Rare HPF (Negative); Other Cells Few Renal (Negative); RBC Negative HPF (0-2)
[2023-06-18 14:06] LABS: Bacteria Rare HPF (Negative); C & S Indicated? Yes; Casts Negative LPF (Negative); Crystals Negative HPF (Negative); Mucus Negative (Negative)
[2023-06-18 14:30] VITALS: BP 131/77; PULSE 77; RESP 16; O2SAT 97
[2023-06-18 16:29] VITALS: BP 171/111; PULSE 67; RESP 18; TEMP 36.2; O2SAT 98
== END 2023-06-18 17:01 | disposition home or self-care (01) ==
PROVIDERS: Emergency Provider Emergency Medicine; PCP Family Medicine
DX: J18.9 Pneumonia, unspecified organism (principal); G80.9 Cerebral palsy, unspecified; I31.39 Other pericardial effusion (noninflammatory); G40.909 Epilepsy, unspecified, not intractable, without status epilepticus; Z99.3 Dependence on wheelchair; Z79.899 Other long term (current) drug therapy
CPT/HCPCS: 36415; 71250; 80048; 87040; 87493; 96365; 96368; 99284; 71045; 81003; 81015; 83605; 85025; 87086; J0696; J3372

== ENCOUNTER → 2023-07-21 10:46 | Outpatient (BNVA) | payer MEDICARE, MEDICAID, SELFPAY | PROVIDERS: PCP Family Medicine; Visit Provider Psychiatry & Neurology Neurology | DX: G40.919 Epilepsy, unspecified, intractable, without status epilepticus (principal) | CPT/HCPCS: 99214 ==

== ENCOUNTER 2023-09-08 04:34 | Outpatient (CLI) | payer MEDICARE, MEDICAID, SELFPAY ==
[2023-09-08 15:05] LABS: Vitamin D 25 Total 101.6 ng/mL (30-100)
== END 2023-09-08 04:35 | disposition home or self-care (01) ==
LOC: LBO 04:35
PROVIDERS: PCP Family Medicine; Visit Provider Family Medicine
DX: E55.9 Vitamin D deficiency, unspecified (principal)
CPT/HCPCS: 36415; 82306

== ENCOUNTER 2023-10-22 03:24 | Outpatient (CLI) | payer MEDICARE, MEDICAID, SELFPAY ==
[2023-10-22 15:52] LABS: Vitamin D 25 Total 51.1 ng/mL (30-100)
== END 2023-10-22 03:25 | disposition home or self-care (01) ==
LOC: LBO 03:24
PROVIDERS: PCP Family Medicine; Visit Provider Family Medicine
DX: E55.9 Vitamin D deficiency, unspecified (principal)
CPT/HCPCS: 36415; 82306

== ENCOUNTER 2024-05-25 09:42 | Outpatient (CLI) | payer MEDICARE, MEDICAID, SELFPAY ==
[2024-05-25 12:17] LABS: Abs Immature Grans 0.02 10^3/uL (0.0-0.06); Absolute Basophil Count 0.04 10^3/uL (0.0-0.2); Absolute Eosinophil Count 0.11 10^3/uL (0.0-0.7); Absolute Lymphocyte Count 3.08 10^3/uL (1.2-3.4); Absolute Monocyte Count 0.62 10^3/uL (0.1-0.8); Basophils % 0.6 %; Eosinophils % 1.6 %; HCT 39.6 % (36.0-46.0); HGB 13.8 g/dL (11.2-15.7); Immature Grans % 0.3 %; Lymphocytes % 43.6 %; MCH 35.2 pg (27.0-33.0); MCHC 34.8 % (32.0-36.0); MCV 101 fL (80-95); MPV 11.8 fL (8.0-11.0); Monocytes % 8.8 %; Neutrophils % 45.1 %; Platelet Count 135 10^3/uL (130-400); RBC 3.92 10^6/uL (3.93-5.22); RDW 12.1 % (11.7-14.6); RDW-SD 45.1 fL; WBC 7.07 10^3/uL (4.4-10.8)
[2024-05-25 12:52] LABS: Lab Add On Test DONE
[2024-05-25 12:53] LABS: VALPROIC ACID 95.9 ug/mL
[2024-05-25 13:07] LABS: ALT 8 U/L (14-59); AST 16 U/L (15-37); Albumin 2.8 g/dL (3.4-5.0); Alkaline Phosphatase 67 U/L (46-116); Anion Gap 9.5 mmol/L (3-11); BUN 10 mg/dL (7-18); Bilirubin, Total 0.2 mg/dL (0.2-1.0); CO2 25.5 mmol/L (21.0-32.0); CREATININE 0.4 mg/dL (0.55-1.02); Calcium 8.9 mg/dL (8.5-10.1); Chloride 110 mmol/L (98-107); Estimated GFR 119.75 (mL/min/1.73m2); Glucose 83 mg/dL (74-106); Potassium 4.1 mmol/L (3.5-5.1); Sodium 145 mmol/L (136-145); Total Protein 6.2 g/dL (6.4-8.2); Vitamin D 25 Total 59 ng/mL (30-100)
[2024-05-25 13:31] LABS: Vitamin B12 1289 pg/mL (193-986)
== END 2024-05-25 09:43 | disposition home or self-care (01) ==
LOC: LOS 09:43
PROVIDERS: PCP Family Medicine; Referring Provider Family Medicine; Visit Provider Family Medicine
DX: G40.309 Generalized idiopathic epilepsy and epileptic syndromes, not intractable, without status epilepticus; E55.9 Vitamin D deficiency, unspecified; I10 Essential (primary) hypertension; R71.8 Other abnormality of red blood cells
CPT/HCPCS: 36415; 80053; 82306; 80164; 82607; 85025

== ENCOUNTER 2024-06-18 13:50 | Emergency (ER) | payer MEDICARE, MEDICAID, SELFPAY ==
[2024-06-18] VITALS (19 sets, daily range): BP systolic 114–148; BP diastolic 53–82; PULSE 60–71; RESP 18; TEMP 36.1; O2SAT 94–99
--- NOTE | 2024-06-18 14:00 | DI.RAD_ITS ---
Exam(s) XR PORTABLE CHEST AP EXAM: XR PORTABLE CHEST AP CLINICAL HISTORY: cough TECHNIQUE: 2D digital imaging was performed. COMPARISON: CT CT CHEST WO from 06/18/2023 CR XR PORTABLE CHEST AP from 06/18/2023 FINDINGS: LUNGS: Clear. No pleural abnormality seen. HEART: Normal size. AORTA: Normal diameter. BONES: Unremarkable for age. Soft tissues: Unremarkable. IMPRESSION: No acute findings. DATA REPOSITORY: RADIATION DOSE DELIVERED:
--- NOTE | 2024-06-18 14:18 | W.ED.GENAD ---
Discharge Plan Disposition Patient Disposition: Home Discharge Details Clinical Impression: Cough Primary Care Provider: Paula Lornezo ED Provider: Kae Cormier Home Meds and New Rx's Prescriptions: No Action bisacodyl [Dulcolax (bisacodyl)] 10 mg suppository 10 mg VA DAILY Qty: 90 5RF clobazam 10 mg tablet 5 mg PO QHS Qty: 45 3RF Diafoods Thick-It #2 Powder See Rx Instructions PO AC Qty: 850 12RF Rx Instructions: 1 dose orally before meals; divalproex 125 mg tablet,delayed release (DR/EC) See Rx Instructions PO BID Qty: 330 8RF Rx Instructions: 5tab in AM; 6 tab in PM PO twice a day; carbamazepine 100 mg tablet,chewable See Rx Instructions PO TID Qty: 180 12RF Rx Instructions: 2 tabs in AM; 1 tab noon; 3 tabs in PM Discharge Instructions Additional Instructions: Lab work, urinalysis and chest x-ray do not reveal any signs of an acute infection. She may have a virus causing her increased tiredness and decreased appetite. Please try to encourage her to eat and drink as much as she can. Her carbamazepine level is slightly above therapeutic limit. Please follow-up with her doctor to have it retested and possibly adjust the medication. At this time she does not need antibiotics, but if she has fevers, worsened cough or difficulty breathing, she would need reevaluation. HPI General Date/Time Provider Initiated Documentation: 06/18/24 14:02. Limitations to Documentation: other (Nonverbal developmental delay, cerebral palsy). Information obtained by: family. HPI Narrative: 49-year-old female with past medical history of cerebral palsy, epilepsy presents with her caregiver with concern for a cough that started yesterday. Caregiver states that the cough sounds very wet. She has not noted a fever. She has noted that she seems to be ill for the last 5 days. She is sleeping more than usual and not as alert. She has noted a decrease in her oral intake which the caregiver says normally she enjoys very much. She has noted that her urine appears to be very concentrated. She states that occasionally she has seizures while eating and this causes some coughing and choking episodes. She states that she has daily seizures and so this episode of choking does not happen infrequently and did occur this week. Related Data Home Medications ?Medication ?Instructions ?Recorded ?Confirmed bisacodyl 10 mg rectal suppository 10 mg VA DAILY #90 supp 03/17/23 05/25/24 (Dulcolax (bisacodyl)) clobazam 10 mg tablet 5 mg (1/2 x 10 mg) PO QHS #45 tabs 02/09/24 05/25/24 starch (thickening) (Diafoods See Rx Instructions PO AC #850 03/11/24 05/25/24 Thick-It #2 oral powder) grams divalproex 125 mg tablet,delayed See Rx Instructions PO BID #330 03/22/24 05/25/24 release tab-caps carbamazepine 100 mg chewable See Rx Instructions PO TID #180 04/16/24 05/25/24 tablet tabs Previous Rx's ?Medication ?Instructions ?Recorded bisacodyl 10 mg rectal suppository 10 mg VA DAILY #90 supp 03/17/23 (Dulcolax (bisacodyl)) clobazam 10 mg tablet 5 mg (1/2 x 10 mg) PO QHS #45 tabs 02/09/24 starch (thickening) (Diafoods See Rx Instructions PO AC #850 03/11/24 Thick-It #2 oral powder) grams divalproex 125 mg tablet,delayed See Rx Instructions PO BID #330 03/22/24 release tab-caps carbamazepine 100 mg chewable See Rx Instructions PO TID #180 04/16/24 tablet tabs Allergies Allergy/AdvReac Type Severity Reaction Status Date / Time sulfamethoxazole (From AdvReac Intermediate NAUSEA, Verified 06/18/24 12:33 Bactrim) VOMITING trimethoprim (From Bactrim) AdvReac Intermediate NAUSEA, Verified 06/18/24 12:33 VOMITING General Stated Complaint: RespSymp TYE: 3 Exam Narrative Exam Narrative: Review of Systems: All systems reviewed & are unremarkable except as noted in HPI and below Thin, frail, chronically ill-appearing NCAT Conjunctival pallor RRR no murmur Very wet cough, but no hypoxia or tachypnea , unlabored respiratory effort Nondistended abdomen soft nontender Lays with extremities contracted, prefers right side laying, no skin breakdown noted, does not verbalize or follow commands Course Vital Signs Vital signs: Vital Signs Temperature 36.1 C L 06/18/24 13:55 Pulse 68 06/18/24 13:55 Respiratory Rate 18 06/18/24 13:55 Blood Pressure 128/81 06/18/24 13:55 Pulse Oximetry 98 06/18/24 13:55 Temperature 36.1 C L 06/18/24 13:58 Temperature Source Temporal Artery Scan 06/18/24 13:58 Pulse 68 06/18/24 13:58 Respiratory Rate 18 06/18/24 13:58 Respiratory Effort Normal, Non-Labored 06/18/24 14:09 Blood Pressure 128/81 06/18/24 13:58 Pulse Oximetry 94 06/18/24 13:58 Oxygen Delivery Method Room Air 06/18/24 13:58 Pain Level 0 06/18/24 13:58 Medical Decision Making Emergent evaluation of increased cough and poor urine output. Patient has significant history of cerebral palsy and daily seizures. She has history of aspiration that occurs while seizing. Initial differential includes aspiration pneumonia, viral illness, electrolyte derangement, dehydration. Will evaluate blood work. She was referred from urgent care and had [id number] flu and COVID testing done there. Will obtain formal PCR, chest x-ray and lab work to evaluate. Lab work reviewed, there is no leukocytosis or anemia. There is no electrolyte derangement. Her procalcitonin is also negative. A urinalysis was obtained and this does not reveal an infection. Her chest x-ray was reviewed and independently interpreted, there is no focal consolidation or pulmonary edema. Her viral testing is negative. At this time the patient has been sleeping in the emergency department, but no significant cough or hypoxia. Given her fairly unremarkable blood work, I do not feel antibiotics are indicated. Her her carbamazepine level is slightly above therapeutic range but not within toxic level. I recommend that she get this level rechecked and her medication adjusted by her PCP. Return precautions advised. Recommend close follow-up with PCP and return to the emergency department if her cough or other respiratory symptoms worsen. 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 Patient followed at [facility] [place]. Onychomycosis (Chronic) Hearing loss (Chronic) Generalized convulsive epilepsy (Chronic) Cerebral palsy (Chronic) Acne (Chronic) Macrocytic anemia (Chronic) Medical History (Updated 06/18/24 @ 16:50 by Kae Cormier MD) UTI (urinary tract infection) Family History Mother No problems noted. Father No problems noted. Grandfather No problems noted. Grandmother No problems noted. Social History Smoking/Tobacco Use Status: Never Smoking risk assessment performed?: Yes Alcohol Intake: never Drug use: Never Substance use type: does not use Housing: other Do you feel safe at home: Yes (KRISHAN) Do you feel safe in your relationship?: Yes
[2024-06-18 14:37] LABS: Abs Immature Grans 0.06 10^3/uL (0.0-0.06); Absolute Basophil Count 0.04 10^3/uL (0.0-0.2); Absolute Eosinophil Count 0.04 10^3/uL (0.0-0.7); Absolute Lymphocyte Count 3.15 10^3/uL (1.2-3.4); Absolute Monocyte Count 0.64 10^3/uL (0.1-0.8); Absolute Neutrophil Count 4.49 10^3/uL (1.2-6.7); Basophils % 0.5 %; Eosinophils % 0.5 %; HCT 42.7 % (36.0-46.0); HGB 14.9 g/dL (11.2-15.7); Immature Grans % 0.7 %; Lymphocytes % 37.4 %; MCH 34.7 pg (27.0-33.0); MCHC 34.9 % (32.0-36.0); MCV 100 fL (80-95); MPV 10.4 fL (8.0-11.0); Monocytes % 7.6 %; Neutrophils % 53.3 %; Platelet Count 181 10^3/uL (130-400); RBC 4.29 10^6/uL (3.93-5.22); RDW 11.9 % (11.7-14.6); RDW-SD 43.4 fL; WBC 8.42 10^3/uL (4.4-10.8)
[2024-06-18 14:51] LABS: ALT 11 U/L (14-59); AST 14 U/L (15-37); Albumin 3.2 g/dL (3.4-5.0); Alkaline Phosphatase 80 U/L (46-116); Anion Gap 6.7 mmol/L (3-11); BUN 17 mg/dL (7-18); Bilirubin, Total 0.2 mg/dL (0.2-1.0); CO2 29.3 mmol/L (21.0-32.0); CREATININE 0.7 mg/dL (0.55-1.02); Calcium 9.2 mg/dL (8.5-10.1); Chloride 107 mmol/L (98-107); Estimated GFR 104.65 (mL/min/1.73m2); Glucose 105 mg/dL (74-106); Potassium 4.4 mmol/L (3.5-5.1); Sodium 143 mmol/L (136-145); Total Protein 7.1 g/dL (6.4-8.2)
[2024-06-18 14:56] LABS: TROPONIN-I 13.9 ug/mL (4.0-12.0); VALPROIC ACID 97.4 ug/mL
[2024-06-18 15:19] LABS: Procalcitonin < 0.10 ng/mL
[2024-06-18 15:31] LABS: COVID-19 PCR Negative (Negative); Influenza A PCR Negative (Negative); Influenza B PCR Negative (Negative); RSV PCR Negative (Negative)
[2024-06-18 15:32] LABS: Source Nasopharynx
[2024-06-18] MEDS: Normal Saline 1,000 ML 1000 ML IV (15:59)
[2024-06-18 16:39] LABS: Bilirubin Negative (Negative); Blood Negative (Negative); Clarity Sl Cloudy (Clear); Glucose Negative (Negative); Ketones Negative (Negative); Leukocyte Esterase Negative (Negative); Nitrite Negative (Negative); Urobilinogen 0.2 mg/dL (Up to 0.2); pH 7.5 (5-8)
== END 2024-06-18 17:06 | disposition home or self-care (01) ==
PROVIDERS: Emergency Provider Emergency Medicine; PCP Family Medicine
DX: R05.9 Cough, unspecified (principal); G80.9 Cerebral palsy, unspecified; G40.909 Epilepsy, unspecified, not intractable, without status epilepticus
CPT/HCPCS: 80053; 84145; 87637; 99284; 71045; 80156; 80164; 81003; 85025; 99283

== ENCOUNTER → 2024-07-19 11:22 | Outpatient (BNVA) | payer MEDICARE, MEDICAID, SELFPAY | PROVIDERS: PCP Family Medicine; Visit Provider Psychiatry & Neurology Neurology | DX: G40.919 Epilepsy, unspecified, intractable, without status epilepticus (principal) | CPT/HCPCS: 99214 ==

== ENCOUNTER 2024-10-01 22:36 | Emergency (ER) | payer MEDICARE, MEDICAID, SELFPAY ==
[2024-10-01] VITALS (43 sets, daily range): BP systolic 122–147; BP diastolic 80–91; PULSE 94–136; RESP 12–34; TEMP 36; O2SAT 93–97
--- NOTE | 2024-10-01 22:42 | ED.GENADUL_ITS ---
Discharge Plan Disposition Patient Disposition: Home Condition: Good Discharge Details Clinical Impression: Aspiration pneumonia Primary Care Provider: Paula Lorenzo ED Provider: Jose D Davis Home Meds and New Rx's Prescriptions: New amoxicillin-pot clavulanate 875-125 mg tablet 1 tab PO BID 10 Days Qty: 20 0RF No Action clobazam 10 mg tablet 10 mg PO QHS Qty: 90 3RF carbamazepine 100 mg tablet,chewable See Rx Instructions PO TID Qty: 450 3RF Rx Instructions: 2 tabs in AM; 1 tab noon; 2 tabs in PM divalproex 125 mg tablet,delayed release (DR/EC) See Rx Instructions PO BID Qty: 990 3RF Rx Instructions: 5tab in AM; 6 tab in PM PO twice a day; bisacodyl [Dulcolax (bisacodyl)] 10 mg suppository 10 mg OR DAILY Qty: 90 5RF [employer]foods Thick-It #2 Powder See Rx Instructions PO AC Qty: 850 12RF Rx Instructions: 1 dose orally before meals; Discharge Instructions Instructions: Aspiration pneumonia Additional Instructions: At this time you have symptoms of aspiration pneumonia. Thankfully your oxygen levels are stable. Please continue to monitor your symptoms closely for worsening cough, fever, or difficulty breathing. If this occurs please return for reassessment. Please take the antibiotic as prescribed. It has been sent to your pharmacy on file. If you notice any worsening of your symptoms, or any new symptoms such as vomiting, diarrhea, fever, chills, shortness of breath, chest pain, numbness, weakness, or fainting , please return immediately to the emergency department for reevaluation. Please follow up with your primary care provider as soon as possible for reassessment and reevaluation. As always, it was a pleasure participating in your medical care today. Referrals: Paula Lorenzo MD, [place] [Primary Care Provider, Medicine] HPI General Date/Time Provider Initiated Documentation: 10/01/24 22:41 . HPI Narrative: This is a 49-year-old female with a past medical history of severe cerebral pal sy, chronic seizures on Depakote (who regularly has a few seizures per day) who presents today via EMS for pneumonia versus aspiration and respiratory distress. Patient had3 seizures today, all of which were brief, and focal which per EMS per the family was the patient's baseline. However what was a typical was during the third seizure the patient had an episode of vomiting, and subsequently aspirated and had difficulty breathing. EMS was called and upon their arrival patient was saturating at 86%. Oxygen support was given, DuoNeb was given, and by the time the patient arrived to the ED oxygenation was around at around 95% on 3 L. Patient is nonverbal at baseline. Family members were not able to come secondary to watching 2 other developmentally delayed patients at their residential. No other complaints at this time. Related Data Home Medications ?Medication ?Instructions ?Recorded ?Confirmed bisacodyl 10 mg rectal suppository 10 mg OR DAILY #90 supp 03/17/23 10/01/24 (Dulcolax (bisacodyl)) starch (thickening) ([employer]foods See Rx Instructions PO A C #850 03/11/24 10/01/24 Thick-It #2 oral powder) grams carbamazepine 100 mg chewable See Rx Instructions PO T ID #450 07/19/24 10/01/24 tablet tabs clobazam 10 mg tablet 10 mg PO QHS #90 tabs 10/01/24 divalproex 125 mg tablet,delayed See Rx Instructions P O BID #990 07/19/24 10/01/24 release tab-caps amoxicillin 875 mg-potassium 1 tab PO BID 10 days #20 tabs 10/02/24 clavulanate 125 mg tablet Previous Rx's ?Medication ?Instructions ?Recorded bisacodyl 10 mg rectal suppository 10 mg OR DAILY #90 supp 03/17/23 (Dulcolax (bisacodyl)) starch (thickening) (Diafoods See Rx Instructions PO A C #850 03/11/24 Thick-It #2 oral powder) grams carbamazepine 100 mg chewable See Rx Instructions PO T ID #450 07/19/24 tablet tabs clobazam 10 mg tablet 10 mg PO QHS #90 tabs divalproex 125 mg tablet,delayed See Rx Instructions P O BID #990 07/19/24 release tab-caps amoxicillin 875 mg-potassium 1 tab PO BID 10 days #20 tabs 10/02/24 clavulanate 125 mg tablet Allergies Allergy/AdvReac Type Severity Reaction Status Date / Time sulfamethoxazole (From AdvReac Intermediate NAUSEA, Verified 10/01/24 23:51 Bactrim) VOMITING trimethoprim (From Bactrim) AdvReac Intermediate NAUSEA, Verified 10/01/24 23:51 VOMITING General Stated Complaint: RespSymp TYE: 3 Exam Narrative Exam Narrative: 1.Const: Thin, chronic debilitation. 2.Eyes: PERRL, no conjunctival injection, and symmetrical lids. 3.ENT: Atraumatic external nose and ears. Moist MM. Neck: Symmetric, trachea midline, No thyromegaly. 4.CVS: +S1/S2, Peripheral pulses 2+ and equal in all extremities. Brisk capillary refill in all extremities. 5.RESP: Unlabored respiratory effort. Rhonchorous breath sounds on the right, clear lung sounds on the left. 6.GI: Soft, Nontender/Nondistended, No hepatosplenomegaly. No guarding or rebound. 7.MSK: Normocephalic/Atraumatic, Extremities w/o deformity or ttp No cyanosis or clubbing, chronic reduced movement in all extremities 8.Skin: Warm, Dry. No rashes or lesions. 9.Neuro: Patient's eyes are open spontaneously. She is nonverbal at baseline. She does look around the room, but does not track well at this time. Some movements of the upper extremities. 10.Psych: (AAO) x0. Course Vital Signs Vital signs: Vital Signs Temperature 36.0 C L 10/01/24 22:36 Pulse 100 H 10/01/24 22:36 Respiratory Rate 18 10/01/24 22:36 Blood Pressure 132/80 10/01/24 22:36 Pulse Oximetry 96 10/01/24 22:36 Temperature 36.0 C L 10/01/24 22:36 Temperature Source Axillary 10/01/24 22:36 Pulse 100 H 10/01/24 22:36 Respiratory Rate 18 10/01/24 22:36 Blood Pressure 132/80 10/01/24 22:36 Pulse Oximetry 96 10/01/24 22:36 Oxygen Delivery Method Nasal Cannula 10/01/24 22:36 Oxygen Flow Rate 3 10/01/24 22:36 Pain Level 0 10/01/24 22:36 Medical Decision Making This is a 49-year-old female with a past medical history of severe cerebral palsy, chronic seizures on Depakote (who regularly has a few seizures per day) who presents today via EMS for pneumonia versus aspiration and respiratory distress. Patient had3 seizures today, all of which were brief, and focal which per EMS per the family was the patient's baseline. However what was a typical was during the third seizure the patient had an episode of vomiting, and subsequently aspirated and had difficulty breathing. EMS was called and upon their arrival patient was saturating at 86%. Oxygen support was given, DuoNeb was given, and by the time the patient arrived to the ED oxygenation was around at around 95% on 3 L. Patient is nonverbal at baseline. Family members were not able to come secondary to watching 2 other developmentally delayed patients at their residential. No other complaints at this time. Exam demonstrates rhonchorous breath sounds on the right, oxygenation around 95% on 3 L. Concern for aspiration pneumonia. Will get chest x-rays, give 3 g of Unasyn, monitor closely and reassess. 12:42 AM Laboratory workup has returned, mild white count of 15, no bandemia. Electrolytes stable. Depakote level normal. Patient's oxygenation remains 94 to 95% on room air during an extended observation period. Patient's caregiver is now at bedside. We discussed the scenario, and at this time with no hypoxemia, stable vital signs, the patient is appropriate for home with continued close monitoring. Augmentin will be given for treatment of aspiration pneumonia/pneumonitis. Prescription has been sent to pharmacy. Discussed red flags which to return. Caregiver states that she will be able to break the pills for the patient to take as the patient will likely not take a lemus tasting liquid which the Augmentin liquid form certainly is quite unpalatable. I have extensively reviewed the treatment plan and discharge instructions with the patient and their family. I have addressed all patient concerns at this time. The patient and family was made aware of what symptoms to monitor for that would warrant a return to the emergency department. Discussed the plan with the patient and family, they demonstrate verbal understanding and agreement with our assessment and plan at this time. The documentation in this chart was dictated using TipTap dictation software. Please excuse any dictation errors. INDINGS: Lungs: Pulmonary hyperinflation with increased patchy right greater than left bibasilar interstitial densities. Pleural spaces: No pleural effusion. No pneumothorax. Heart/Mediastinum: No cardiomegaly. Bones/joints: No acute fracture. Gastrointestinal tract: The visualized stomach appears moderately to severely distended with gas. IMPRESSION: 1. Concerning for srdpu-[id number]-left bibasilar aspiration given the history. 2. The visualized stomach appears moderately to severely distended with gas. Thank you for allowing us to participate in the care of your patient. 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 [place] [facility] [place] Onychomycosis (Chronic) Hearing loss (Chronic) Generalized convulsive epilepsy (Chronic) Cerebral palsy (Chronic) Acne (Chronic) Macrocytic anemia (Chronic) Medical History (Updated 10/02/24 @ 00:20 by Jose D Davis DO) UTI (urinary tract infection) Family History Mother No problems noted. Father No problems noted. Grandfather No problems noted. Grandmother No problems noted. Social History Smoking/Tobacco Use Status: Never Smoking risk assessment performed?: Yes Alcohol Intake: never Drug use: Never Substance use type: does not use Housing: other Do you feel safe at home: Yes (KRISHAN) Do you feel safe in your relationship?: Yes
[2024-10-01] MEDS: AMPICILLIN/SULBACTAM 3 GM in Normal Saline 100 ML IVPB (23:12)
[2024-10-01 23:13] LABS: Abs Immature Grans 0.08 10^3/uL (0.0-0.06); HCT 43.4 % (36.0-46.0); HGB 14.7 g/dL (11.2-15.7); Immature Grans % 0.5 %; MCH 33.9 pg (27.0-33.0); MCHC 33.9 % (32.0-36.0); MCV 100 fL (80-95); MPV 10.0 fL (8.0-11.0); Platelet Count 186 10^3/uL (130-400); RBC 4.33 10^6/uL (3.93-5.22); RDW 11.9 % (11.7-14.6); RDW-SD 44.2 fL; WBC 15.20 10^3/uL (4.4-10.8)
[2024-10-01 23:28] LABS: ALT 9 U/L (14-59); AST 20 U/L (15-37); Albumin 3.1 g/dL (3.4-5.0); Alkaline Phosphatase 83 U/L (46-116); Anion Gap 13.3 mmol/L (3-11); BUN 15 mg/dL (7-18); Bilirubin, Total 0.2 mg/dL (0.2-1.0); CO2 24.7 mmol/L (21.0-32.0); Calcium 9.0 mg/dL (8.5-10.1); Chloride 105 mmol/L (98-107); Estimated GFR 113.48 (mL/min/1.73m2); Glucose 140 mg/dL (74-106); Potassium 3.6 mmol/L (3.5-5.1); Sodium 143 mmol/L (136-145); Total Protein 7.4 g/dL (6.4-8.2)
--- NOTE | 2024-10-01 23:42 | DI.RAD_ITS ---
Exam(s) XR PORTABLE CHEST AP EXAM: XR PORTABLE CHEST AP CLINICAL HISTORY: vomiting, cerebral palsy, aspiration TECHNIQUE: 2D digital imaging was performed. AP semi upright COMPARISON: CR XR PORTABLE CHEST AP from 06/18/2024 FINDINGS: LUNGS: Streaky increased densities noted at the lung bases which could represent aspiration pneumonia versus atelectasis. No pleural abnormality seen. HEART: Normal size. AORTA: Normal diameter. BONES: Unremarkable for age. Soft tissues: The stomach is distended with gas. IMPRESSION: Bibasilar infiltrates which could indicate aspiration pneumonia.. Stomach is distended with gas. The preliminary [facility] report was reviewed. DATA REPOSITORY: RADIATION DOSE DELIVERED:
[2024-10-02] VITALS (24 sets, daily range): BP systolic 124–149; BP diastolic 89–99; PULSE 95–138; RESP 15–33; O2SAT 93–97
--- NOTE | 2024-10-02 00:21 | DI.[facility]_ITS ---
PROCEDURE INFORMATION: Exam: XR Chest Exam date and time: 10/01/2024 11:41 PM Age: 49 years old Clinical indication: Other: Vomiting, aspiration; Vomiting, cerebral palsy, aspiration TECHNIQUE: Imaging protocol: Radiologic exam of the chest. Views: 1 view. COMPARISON: CR XR PORTABLE CHEST AP 06/18/2024 2:37 PM FINDINGS: Lungs: Pulmonary hyperinflation with increased patchy right greater than left bibasilar interstitial densities. Pleural spaces: No pleural effusion. No pneumothorax. Heart/Mediastinum: No cardiomegaly. Bones/joints: No acute fracture. Gastrointestinal tract: The visualized stomach appears moderately to severely distended with gas. IMPRESSION: 1. Concerning for fipju-[id number]-[id number]-left bibasilar aspiration given the history. 2. The visualized stomach appears moderately to severely distended with gas. Dictated and Authenticated by: Adelita Cali MD. Orderin Ryan Jeffery MD
--- NOTE | 2024-10-03 19:29 | NUR.NOTE ---
Nursing Note:Spoke to care management associate, wanted to know if she should bring pt in. Told her that I cannot give advice over the phone and that if she has concern that she can come to the ED or call PCP accreditation manager.
== END 2024-10-02 00:31 | disposition home or self-care (01) ==
PROVIDERS: Emergency Provider Student in an Organized Health Care Education/Training Program; PCP Family Medicine
DX: J69.0 Pneumonitis due to inhalation of food and vomit (principal); G80.9 Cerebral palsy, unspecified
CPT/HCPCS: 99284 ×2; 80053; 96365; 71045; 80164; 85025; J0295

== ENCOUNTER → 2024-10-18 12:48 | Outpatient (BNVA) | payer MEDICARE, MEDICAID, SELFPAY | PROVIDERS: PCP Family Medicine; Visit Provider Psychiatry & Neurology Neurology | DX: G40.919 Epilepsy, unspecified, intractable, without status epilepticus (principal); G80.9 Cerebral palsy, unspecified; G40.309 Generalized idiopathic epilepsy and epileptic syndromes, not intractable, without status epilepticus | CPT/HCPCS: 99214 ==

== ENCOUNTER → 2024-12-02 14:08 | Outpatient (BNVA) | payer MEDICARE, MEDICAID, SELFPAY | PROVIDERS: PCP Family Medicine; Referring Provider Family Medicine; Visit Provider Psychiatry & Neurology Neurology | DX: G40.919 Epilepsy, unspecified, intractable, without status epilepticus (principal); G40.309 Generalized idiopathic epilepsy and epileptic syndromes, not intractable, without status epilepticus; G80.9 Cerebral palsy, unspecified | CPT/HCPCS: 99214 ==

== ENCOUNTER 2024-12-06 09:11 | Outpatient (CLI) | payer MEDICARE, MEDICAID, SELFPAY | END 2024-12-06 09:12 | disposition home or self-care (01) | LOC: LOS 09:12 | PROVIDERS: Psychiatry & Neurology Neurology; PCP Family Medicine; Referring Provider Family Medicine; Visit Provider Family Medicine | DX: G40.919 Epilepsy, unspecified, intractable, without status epilepticus (principal) | CPT/HCPCS: 36415; 80156 ==